=== PATIENT | male | born 1960 | race Caucasian/White ===

== ENCOUNTER 2021-08-16 17:15 | Inpatient (IN) | payer MEDICARE ==
[~2021-08-16] VITALS: Ht 167.7 cm; Wt 63.2 kg
[~2021-08-16 17:15] MED LIST: CPR500T PO
[2021-08-16] MEDS ORDERED: VANCOMYCIN INJECTION 1,250 MG in NS (IVPB) 250 ML IV ONE (17:45)
[2021-08-16] MEDS ORDERED: CEFEPIME INJECTION 1,000 MG in NS (IVPB) 50 ML IV ONE (17:45)
[2021-08-16] MEDS ORDERED: NS IV 1000 ML 2,000 ML ONE (17:45)
[2021-08-16] MEDS ORDERED: NS IV 1000 ML 1,000 ML IV SCH ×3 (17:45→18:15)
[2021-08-16 17:46] LABS: ABG OXYGEN SATURATION 91 % (94-100); ABG PCO2 21 MMHG (35-45); ABG PH 7.47 (7.37-7.43); ABG PO2 51 MMHG (79-93); ABG TCO2 15.9 MMOL/L (21.0-31.0)
[2021-08-16 17:48] LABS: INSPIRED O2 2L; PATIENT TEMP 35.9; VENTILATOR NO
[2021-08-16 17:52] VITALS: BP 114/82
--- NOTE | 2021-08-16 17:53 | ED Respiratory ---
General Chief Complaint: Respiratory Problems Stated Complaint: SLIPPED AND FELL Source: patient Exam Limitations: no limitations (AKUA STRONG) History of Present Illness Date Seen by Provider: Aug 16, 2021 Time Seen by Provider: 17:27 Initial Comments Patient to the ER by private conveyance walking in with chief complaint of profound shortness of air. He is mottled, speaking in 1-2 word answers, weak and states he has no history of lung disease or heart disease that he knows of. He does not follow with a doctor or take any medications. He does not use oxygen at baseline and had a couple falls today from standing. He says he has felt weak for the past several days short of breath. He has also had epigastric down to his umbilicus pain. He states he had a fever. He does not think he has had any sick contacts. No trauma. He fell from standing did not fall off of anything. He denies any surgeries or take any medications. He smokes about 4 c igarettes a day typically. He denies drug allergies and states he is a full code and is okay with intubation if necessary. (AKUA STRONG) Allergies and Home Medications Allergies Coded Allergies: No Known Drug Allergies (Unverified , 03/17/13) Patient Home Medication List Home Medication List Reviewed: Yes (AKUA STRONG) No Active Prescriptions or Reported Meds Review of Systems Review of Systems Constitutional: No chills, No diaphoresis EENTM: No ear discharge, No ear pain Respiratory: No cough; short of breath Cardiovascular: No chest pain, No Hx of Intervention, No palpitations Gastrointestinal: abdominal pain, constipation; No diarrhea, No nausea, No vomiting Genitourinary: No dysuria, No frequency, No hesitancy Musculoskeletal: No joint pain, No joint swelling (AKUA STRONG) All Other Systems Reviewed Negative Unless Noted: Yes (AKUA STRONG) Past Hwiqnag-Lhmlko-Ahvkce Hx Patient Social History Tobacco Use?: Yes Tobacco type used: Cigarettes Smoking Status: Current Everyday Smoker (4 cigarettes/day) Use of E-Cig and/or Vaping dev: No Substance use?: No Alcohol Use?: No (AKUA STRONG) Substance use?: Yes Substance type: Amphetamines, Methamphetamine, Marijuana Additional substance use comme: UDS + FOR METH/AMPHETAMINES, THC ON 08/16/21 (CHRISTIANO ESPINO DO) Immunizations Up To Date Tetanus Booster (TDap): Unknown (AKUA STRONG) Past Medical History Reproductive Disorders: No Sexually Transmitted Disease: No HIV/AIDS: No Adverse Reaction/Blood Tranf: No (AKUA STRONG) Physical Exam Vital Signs - First Documented 08/16/21 17:23 Temp 35.9 Pulse 113 Resp 38 B/P (MAP) 131/85 (100) Pulse Ox 77 O2 Delivery Nasal Cannula O2 Flow Rate 6.00 (CHRISTIANO ESPINO DO) Capillary Refill : (AKUA STRONG) Height: 5'7.00" Weight: 136lbs. 8.0oz. 61.650458bo; BMI Method: General Appearance: severe distress, thin, other (Disheveled, dirty, wearing pants that are about 20 sizes too large) Eyes: Bilateral Eye Normal Inspection, Bilateral Eye PERRL, Bilateral Eye EOMI HEENT: PERRL/EOMI (3 mm reactive), TMs normal; No pharynx normal (Dry oral mucosa with poor dentition) Neck: non-tender, full range of motion; No normal inspection (No JVD but gaunt, thin appearing) Respiratory: respiratory distress (Severe respiratory distress. Mottled appearance with cyanosis and inability to get an oxygen saturation until he is on 6 L by nasal cannula he reads out 77%), decreased breath sounds, accessory muscle use Cardiovascular: normal peripheral pulses, regular rate, rhythm Gastrointestinal: normal bowel sounds (Few), soft, guarding; No rebound; tenderness (Umbilicus) Extremities: non-tender, normal inspection Neurologic/Psychiatric: alert, normal mood/affect, oriented x 3 Skin: mottled, other (Covered in dirt with tar stains or fecal stains on his fingers) (AKUA STRONG) General Appearance: other (Disheveled, dirty, wearing pants that are about 20 sizes too large) (CHRISTIANO ESPINO DO) Focused Exam Sepsis Stage: Septic Shock Possible Source: Pulmonary (AKUA STRONG) Lactate Level 08/16/21 17:40: Lactic Acid Level 4.93*H (CHRISTIANO ESPINO DO) Time of Focused Exam: 18:20 Respiratory: Accessory Muscle Use (Significantly reduced work compared to earlier), Decreased Breath Sounds, Respiratory Distress (Maintaining good oxygen saturations on 80% FiO2 and BiPAP 15/7. Breathing 30 breaths/min.) Cardiovascular: Regular Rate, Rhythm, Normal Peripheral Pulses Capillary Refill: Greater Than 3 Seconds Peripheral Pulses: 3+ Radial Pulses (R), 3+ Radial Pulses (L) Skin: normal color, warm/dry (AKUA STRONG) Lactic Acid Level Laboratory Tests Test 08/16/21 17:40 Lactic Acid Level 4.93 MMOL/L (0.50-2.00) *H (CHRISTIANO ESPINO DO) Within 3hrs of presentation: Admin fluids, Admin ABX, Blood cultures prior to ABX's, Focus exam, Lactate level (AKUA STRONG) Progress/Results/Core Measures Suspected Sepsis SIRS Temperature: Pulse: Respiratory Rate: Laboratory Tests 08/16/21 17:40: White Blood Count 7.5 Blood Pressure / Mean: 08/16/21 17:40: Lactic Acid Level 4.93*H Laboratory Tests 08/16/21 17:40: Creatinine 1.68H, Platelet Count 213, Total Bilirubin 0.5 (AKUA STRONG) Results/Orders Lab Results Laboratory Tests Test 08/16/21 17:32 08/16/21 17:40 08/16/21 17:45 08/16/21 18:04 Range/Units Blood Gas Puncture Site L RADIAL Blood Gas Patient Temperature 35.9 Arterial Blood pH 7.47 H 7.37-7.43 Arterial Blood Partial Pressure CO2 21 L 35-45 MMHG Arterial Blood Partial Pressure O2 51 L 79-93 MMHG Arterial Blood HCO3 15 *L 23-27 MMOL/L Arterial Blood Total CO2 15.9 L 21.0-31.0 MMOL/L Arterial Blood Oxygen Saturation 91 L 94-100 % Arterial Blood Base Excess -8.0 L -2.5-2.5 MMOL/L Joshua Test NA Blood Gas Ventilator Setting NO Blood Gas Inspired Oxygen 2L Prothrombin Time 16.4 H 12.2-14.7 SEC INR Comment 1.3 0.8-1.4 Activated Partial Thromboplast Time 35 24-35 SEC D-Dimer 4.46 H 0.00-0.49 UG/ML Sodium Level 129 L 135-145 MMOL/L Potassium Level 4.1 3.6-5.0 MMOL/L Chloride Level 92 L 98-107 MMOL/L Carbon Dioxide Level 18 L 21-32 MMOL/L Anion Gap 19 H 5-14 MMOL/L Blood Urea Nitrogen 40 H 7-18 MG/DL Creatinine 1.68 H 0.60-1.30 MG/DL Estimat Glomerular Filtration Rate 46 BUN/Creatinine Ratio 24 Glucose Level 94 70-105 MG/DL Lactic Acid Level 4.93 *H 0.50-2.00 MMOL/L Calcium Level 9.2 8.5-10.1 MG/DL Corrected Calcium 9.4 8.5-10.1 MG/DL Total Bilirubin 0.5 0.1-1.0 MG/DL Aspartate Amino Transf (AST/SGOT) 43 H 5-34 U/L Alanine Aminotransferase (ALT/SGPT) 32 0-55 U/L Alkaline Phosphatase 87 40-136 U/L Troponin I < 0.028 <0.028 NG/ML C-Reactive Protein High Sensitivity 45.00 H 0.00-0.50 MG/DL B-Type Natriuretic Peptide 1188.7 H <100.0 PG/ML Total Protein 7.1 6.4-8.2 GM/DL Albumin 3.7 3.2-4.5 GM/DL Procalcitonin 91.25 H <0.10 NG/ML Serum Alcohol < 10 <10 MG/DL Influenza Type A (RT-PCR) Not Detected Not Detecte Influenza Type B (RT-PCR) Not Detected Not Detecte SARS-CoV-2 RNA (RT-PCR) Not Detected Not Detecte Glucometer 94 70-110 MG/DL Test 08/16/21 18:30 Range/Units Urine Color YELLOW Urine Clarity SL CLOUDY Urine pH 6.0 5-9 Urine Specific [place] 1.020 1.016-1.022 Urine Protein 2+ H NEGATIVE Urine Glucose (UA) NEGATIVE NEGATIVE Urine Ketones NEGATIVE NEGATIVE Urine Nitrite POSITIVE H NEGATIVE Urine Bilirubin NEGATIVE NEGATIVE Urine Urobilinogen 0.2 < = 1.0 MG/DL Urine Leukocyte Esterase NEGATIVE NEGATIVE Urine RBC (Auto) 3+ H NEGATIVE Urine RBC 0-2 /HPF Urine WBC 0-2 /HPF Urine Squamous Epithelial Cells RARE /HPF Urine Crystals NONE /LPF Urine Bacteria LARGE H /HPF Urine Casts PRESENT /LPF Urine Granular Casts 2-5 H /LPF Urine Mucus NEGATIVE /LPF Urine Culture Indicated CULTURE PENDING Urine Opiates Screen NEGATIVE NEGATIVE Urine Oxycodone Screen NEGATIVE NEGATIVE Urine Methadone Screen NEGATIVE NEGATIVE Urine Propoxyphene Screen NEGATIVE NEGATIVE Urine Barbiturates Screen NEGATIVE NEGATIVE Ur Tricyclic Antidepressants Screen NEGATIVE NEGATIVE Urine Phencyclidine Screen NEGATIVE NEGATIVE Urine Amphetamines Screen POSITIVE H NEGATIVE Urine Methamphetamines Screen POSITIVE H NEGATIVE Urine Benzodiazepines Screen NEGATIVE NEGATIVE Urine Cocaine Screen NEGATIVE NEGATIVE Urine Cannabinoids Screen POSITIVE H NEGATIVE (CHRISTIANO ESPINO DO) My Orders Orders - CHRISTIANO ESPINO DO Alcohol (08/16/21 17:53) Drug Screen Stat (Urine) (08/16/21 17:53) Accucheck Stat ONCE (08/16/21 18:00) Catheter(Urinary) Insert & Ass 03,15 (08/16/21 18:00) Monitor-Rhythm Ecg Trace Only (08/16/21 18:00) Ct Jayshree Chest/Noang Abd-Pelv W (08/16/21 18:04) Procalcitonin (Pct) (08/16/21 18:15) Ed Iv/Invasive Line Start (08/16/21 18:15) Ns Iv 1000 Ml (Sodium Chloride 0.9%) (08/16/21 18:15) Iohexol Injection (Omnipaque 350 Mg/Ml 1 (08/16/21 19:15) Received Contrast (Hold Metformin- Contr (08/16/21 19:15) Ns (Ivpb) (Sodium Chloride 0.9% Ivpb Bag (08/16/21 19:15) Smear For Path Review (08/16/21 19:34) Cbc With Automated Diff (08/16/21 19:34) Ed Admission (Communication) (08/16/21 19:48) (CHRISTIANO ESPINO DO) Medications Given in ED Current Medications Medications Dose Ordered Sig/Vahe Route Start Time Stop Time Status Last Admin Dose Admin Cefepime HCl 1000 mg/Sodium Chloride 50 ml @ 100 mls/hr ONCE ONCE IV 08/16/21 17:45 08/16/21 18:14 DC 08/16/21 19:18 100 MLS/HR Iohexol 100 ml ONCE ONCE IV 08/16/21 19:15 08/16/21 19:16 DC 08/16/21 19:16 61 ML Sodium Chloride 100 ml ONCE ONCE IV 08/16/21 19:15 08/16/21 19:16 DC 08/16/21 19:16 80 ML Vancomycin HCl 1250 mg/Sodium Chloride 250 ml @ 210 mls/hr ONCE ONCE IV 08/16/21 17:45 08/16/21 18:56 DC 08/16/21 19:18 210 MLS/HR (CHRISTIANO ESPINO DO) Vital Signs/I&O 08/16/21 08/16/21 17:23 17:52 Temp 35.9 Pulse 113 105 Resp 38 34 B/P (MAP) 131/85 (100) Pulse Ox 77 100 O2 Delivery Nasal Cannula O2 Flow Rate 6.00 100.00 (CHRISTIANO ESPINO DO) Vital Signs/I&O Capillary Refill : (AKUA STRONG) Progress Note : Time: 18:16 Progress Note Patient presents in profound respiratory distress. Sugars okay. He is mottled, cyanotic and has not severe increased work of breathing, tachypneic 45 to 50 breaths/min. We put him on 6 L by nasal cannula and called for respiratory therapy to bring a BiPAP. ABG labs 2 large-bore IVs were established. We gave him 2 L of normal saline which would be greater than 30 mL/kg and started treating him for sepsis. He had a good blood pressure still maintained at 1 30- 89. His oxygen saturation is now in the mid 90s on BiPAP 15/7, 100%. Dropped down to 80%. Patient is sleeping but easily aroused. Answers questions appropriately and appears to be oriented. He does have a nonproductive cough. Covid and flu swabs were obtained. Procalcitonin, CRP and D-dimer obtained. Because of his abdominal pain we did a CT with IV contrast of the abdomen. Because of the history of falls we did a CT of the head and C-spine without IV contrast. Septic work-up. ABG demonstrates respiratory alkalosis due to hypoxemia, severe. Fecal stains on his hands may indicate he has had diarrhea but the patient does not endorse this. Broad-spectrum antibiotics including cefepime and vancomycin. (AKUA STRONG) Progress Note : Progress Note 1800--ASSUMED CARE OF PT FROM DR. STRONG, ALL STUDIES PENDING AT THIS TIME. PT IS ON BIPAP AND O2 SATS 100%. PT IS SLEEPING, BUT WAKES TO VERBAL STIMULI. INCIDENTALLY, DAUGHTER WAS ADMITTED HERE A FEW HOURS AGO WITH DKA NO DETERIORATION IN PT'S CONDITION DURING ER STAY (CHRISTIANO ESPINO DO) ECG Initial ECG Impression Date: Aug 16, 2021 Initial ECG Impression Time: 17:37 Initial ECG Rate: 115 Initial ECG Rhythm: S.Tach Initial ECG Impression: Nonspecific Changes (CHRISTIANO ESPINO DO) Diagnostic Imaging Diagonstic Imaging: Xray Plain Films/CT/US/NM/MRI: chest Reviewed: Reviewed by Me (AKUA STRONG) Comments CXR--PER RADIOLOGIST REPORT AT 1858 FINDINGS: Single view of the chest demonstrates moderate infiltrate in the left midlung and base. There is a small left-sided effusion. The right lung is clear. Heart is normal. There is no pneumothorax. The osseous structures are normal. IMPRESSION: Infiltrate left midlung and base with small effusion. Follow-up recommended. CT HEAD/CERVICAL SPINE--PER RADIOLOGIST REPORT AT 1936 FINDINGS: CT HEAD: Mild generalized atrophic changes with prominence of the ventricles and sulci. There are no regional areas of decreased attenuation to suggest edema. No midline shift or mass effect. No hyperdense intracranial vascular sign. Scattered areas of decreased attenuation, likely owing to chronic small vessel ischemic disease. Bony calvarium is intact. Scattered areas of moderate mucosal thickening are noted of the paranasal sinuses. Asymmetric hyperinflation at the oral cavity CT CERVICAL SPINE: No acute fracture or traumatic subluxation. Multilevel cervical spondylosis is present. More prominent disc space narrowing at C5-C6, C6-C7 levels and, to a lesser degree, C4-C5 level. Osteophyte does result in osseous encroachment and various degrees of mild/moderate foraminal narrowing. The facet joints are intact. Odontoid intact. Visualized lung apices are unremarkable. There is calcification of the carotid bifurcation. IMPRESSION: CT HEAD: 1. Negative for acute intracranial abnormality. Some generalized age-related involutional changes. CT CERVICAL SPINE: 1. Negative for acute fracture or traumatic subluxation. Moderate multilevel cervical spondylosis. Various degrees of mild/moderate foraminal narrowing owing to degenerative endplate osteophyte. CT CHEST ANGIOGRAM/ ABDOMEN-PELVIS--PER RADIOLOGIST REPORT AT 1936 FINDINGS: CT chest: The heart is normal in size. Coronary artery disease is present. Pulmonary arteries and aorta are normal. There is a large area of consolidation in the left posterior lung base which may represent pneumonia. However, neoplasm is a secondary concern. There is some prominent subcarinal and left hilar lymph nodes. There is no pneumothorax or effusion. The right lung is clear. Osseous structures are intact. IMPRESSION: 1. Large area of consolidation left posterior lung base representing neoplasm and/or pneumonia. Follow-up is recommended. Bronchoscopy may be warranted. 2. No acute trauma within the chest. 3. Coronary artery disease. CT abdomen and pelvis: The gallbladder, solid organs, vascular structures and bowel are unremarkable. There is chronic atrophy of the spleen. Urinary bladder is decompressed with a Dow catheter. There is no bowel obstruction. There are no obvious fractures. IMPRESSION: 1. No acute trauma within the abdomen or pelvis. 2. Chronic spleen atrophy. (CHRISTIANO ESPINO DO) Departure Communication (Admissions) 1939--SPOKE WITH DR. HUERTA, HOSPITALIST, ACCEPTS PT FOR ADMIT. SHE WILL PUT IN ADMIT ORDERS. WOULD LIKE DR. BYERS CONSULTED 1941--SPOKE WITH DR. BYERS AND INFORMED OF CONSULT. (CHRISTIANO ESPINO DO) Impression Primary Impression: Septic shock Additional Impressions: Acute respiratory failure with hypoxemia Renal insufficiency Hyponatremia Pneumonia CHF (congestive heart failure) UTI (urinary tract infection) Illicit drug use Methamphetamine use Marijuana use POSSIBLE LUNG NEOPLASM VS PNEUMONIA Disposition: ADMITTED INPATIENT Condition: Improved Admissions Decision to Admit Reason: Admit from ER (General) Decision to Admit/Date: Aug 16, 2021 Time/Decision to Admit Time: 18:30 (AKUA STRONG) Departure-Patient Inst. Referrals: JUAN ASHTON (PCP) Primary Care Physician [facility] (Family) Primary Care Physician Scripts No Active Prescriptions or Reported Meds AKUA STRONG Aug 16, 2021 17:53 CHRISTIANO ESPINO DO Aug 16, 2021 18:04
[2021-08-16 17:59] LABS: ALBUMIN 3.7 GM/DL (3.2-4.5)
[2021-08-16 18:00] LABS: CHLORIDE 92 MMOL/L (98-107); POTASSIUM 4.1 MMOL/L (3.6-5.0); SODIUM 129 MMOL/L (135-145)
[2021-08-16 18:01] LABS: CALCIUM 9.2 MG/DL (8.5-10.1)
[2021-08-16 18:02] LABS: GLUCOSE 94 MG/DL (70-105); TOTAL PROTEIN 7.1 GM/DL (6.4-8.2)
[2021-08-16 18:03] LABS: CARBON DIOXIDE 18 MMOL/L (21-32)
[2021-08-16 18:04] LABS: BILIRUBIN,TOTAL 0.5 MG/DL (0.1-1.0); INR 1.3 (0.8-1.4); PROTHROMBIN TIME PATIENT 16.4 SEC (12.2-14.7)
[2021-08-16 18:05] LABS: ALKALINE PHOSPHATASE 87 U/L (40-136)
[2021-08-16 18:06] LABS: CREATININE SERUM 1.68 MG/DL (0.60-1.30); GFR ESTIMATED 46
[2021-08-16 18:07] LABS: BUN/CREATININE RATIO 24
[2021-08-16 18:08] LABS: ALANINE AMINOTRANSFERASE 32 U/L (0-55)
[2021-08-16 18:44] LABS: BILIRUBIN,URINE NEGATIVE (NEGATIVE); CLARITY,URINE SL CLOUDY; COLOR,URINE YELLOW; GLUCOSE, URINE (UA) NEGATIVE (NEGATIVE); KETONES,URINE NEGATIVE (NEGATIVE); LEUKOCYTE ESTERASE ,URINE NEGATIVE (NEGATIVE); NITRITE,URINE POSITIVE (NEGATIVE); PROTEIN,URINE 2+ (NEGATIVE)
--- NOTE | 2021-08-16 18:53 | Diagnostic Imaging Report ---
INDICATION: Recent falls, fever, and cough COMPARISON: 05/01/2015 FINDINGS: Single view of the chest demonstrates moderate infiltrate in the left midlung and base. There is a small left-sided effusion. The right lung is clear. Heart is normal. There is no pneumothorax. The osseous structures are normal. IMPRESSION: Infiltrate left midlung and base with small effusion. Follow-up recommended. Dictated by: Dictated on workstation # [id number]
[2021-08-16 18:55] LABS: BACTERIA,URINE LARGE /HPF; RBC,URINE 0-2 /HPF; SQUAMOUS EPITHELIAL CELL,UR RARE /HPF; WBC,URINE 0-2 /HPF
[2021-08-16 19:06] LABS: AMPHETAMINE SCREEN, URINE POSITIVE (NEGATIVE); BARBITURATE SCREEN URINE NEGATIVE (NEGATIVE); BENZODIAZEPINES SCREEN URINE NEGATIVE (NEGATIVE); CANNABINOID SCREEN, URINE POSITIVE (NEGATIVE); COCAINE SCREEN URINE NEGATIVE (NEGATIVE); METHADONE STAT NEGATIVE (NEGATIVE); METHAMPHETAMINE SCREEN URINE S POSITIVE (NEGATIVE); OPIATE SCREEN URINE NEGATIVE (NEGATIVE); OXYCODONE STAT NEGATIVE (NEGATIVE); PROPOXYPHENE STAT NEGATIVE (NEGATIVE); TRICYCLIC ANTIDEPRESSANTS SCRE NEGATIVE (NEGATIVE)
[2021-08-16] MEDS ORDERED: IOHEXOL 350 MG/ML 100 ML (OMNIPAQUE 350) VIAL IV ONE (19:15)
[2021-08-16] MEDS ORDERED: HOLD METFORMIN - RECEIVED CONTRAST 20 ML VIAL IV SCH (19:15)
[2021-08-16] MEDS ORDERED: NS 100 ML (IVPB) BAG IV ONE (19:15)
--- NOTE | 2021-08-16 19:28 | Diagnostic Imaging Report ---
INDICATION: HYPOXIA, ABD PAIN CTA chest, abdomen and pelvis Thin axial sections through the chest, abdomen and pelvis are obtained following intravenous contrast bolus. Multiplanar MIP images were reconstructed and reviewed. All CT scans use one or more of the following dose optimizing techniques: automated exposure control, MA and/or KvP adjustment based on patient size and exam type or iterative reconstruction. INDICATION: Fall, chest pain, hypoxia COMPARISON: None. FINDINGS: CT chest: The heart is normal in size. Coronary artery disease is present. Pulmonary arteries and aorta are normal. There is a large area of consolidation in the left posterior lung base which may represent pneumonia. However, neoplasm is a secondary concern. There is some prominent subcarinal and left hilar lymph nodes. There is no pneumothorax or effusion. The right lung is clear. Osseous structures are intact. IMPRESSION: 1. Large area of consolidation left posterior lung base representing neoplasm and/or pneumonia. Follow-up is recommended. Bronchoscopy may be warranted. 2. No acute trauma within the chest. 3. Coronary artery disease. CT abdomen and pelvis: The gallbladder, solid organs, vascular structures and bowel are unremarkable. There is chronic atrophy of the spleen. Urinary bladder is decompressed with a Dow catheter. There is no bowel obstruction. There are no obvious fractures. IMPRESSION: 1. No acute trauma within the abdomen or pelvis. 2. Chronic spleen atrophy. Dictated by: Dictated on workstation # [id number]
--- NOTE | 2021-08-16 19:29 | Diagnostic Imaging Report ---
PROCEDURE: CT head and CT cervical spine without contrast. TECHNIQUE: Multiple contiguous axial images were obtained through the brain and cervical spine without the use of intravenous contrast. Sagittal and coronal reformations through the cervical spine were then performed. Auto Exposure Controls were utilized during the CT exam to meet ALARA standards for radiation dose reduction. INDICATION: 60-year-old male, fall, hypoxia. CORRELATION STUDY: None FINDINGS: CT HEAD: Mild generalized atrophic changes with prominence of the ventricles and sulci. There are no regional areas of decreased attenuation to suggest edema. No midline shift or mass effect. No hyperdense intracranial vascular sign. Scattered areas of decreased attenuation, likely owing to chronic small vessel ischemic disease. Bony calvarium is intact. Scattered areas of moderate mucosal thickening are noted of the paranasal sinuses. Asymmetric hyperinflation at the oral cavity CT CERVICAL SPINE: No acute fracture or traumatic subluxation. Multilevel cervical spondylosis is present. More prominent disc space narrowing at C5-C6, C6-C7 levels and, to a lesser degree, C4-C5 level. Osteophyte does result in osseous encroachment and various degrees of mild/moderate foraminal narrowing. The facet joints are intact. Odontoid intact. Visualized lung apices are unremarkable. There is calcification of the carotid bifurcation. IMPRESSION: CT HEAD: 1. Negative for acute intracranial abnormality. Some generalized age-related involutional changes. CT CERVICAL SPINE: 1. Negative for acute fracture or traumatic subluxation. Moderate multilevel cervical spondylosis. Various degrees of mild/moderate foraminal narrowing owing to degenerative endplate osteophyte. Dictated by: Dictated on workstation # [id number]
[2021-08-16 20:22] VITALS: BP 140/78
[2021-08-16 20:27] LABS: ABSOLUTE RETIC # 53 10e9/uL (24-90); BASOPHILS # (AUTO) 0.1 10^3/uL (0.0-0.1); BASOPHILS % (AUTO) 1 % (0-10); EOSINOPHILS % (AUTO) 0 % (0-10); HEMATOCRIT 40 % (40-54); HEMOGLOBIN 13.8 g/dL (13.3-17.7); LYMPHOCYTES # (AUTO) 0.3 10^3/uL (1.0-4.0); LYMPHOCYTES % (AUTO) 4 % (12-44); MEAN CORPUSCULAR HEMOGLOBIN 31 pg (25-34); MEAN CORPUSCULAR HGB CONC 35 g/dL (32-36); MEAN CORPUSCULAR VOLUME 90 fL (80-99); MEAN PLATELET VOLUME 9.7 fL (9.0-12.2); MONOCYTES # (AUTO) 0.2 10^3/uL (0.0-1.0); MONOCYTES % (AUTO) 2 % (0-12); NEUTROPHILS # (AUTO) 7.7 10^3/uL (1.8-7.8); NEUTROPHILS % (AUTO) 92 % (42-75); PLATELET COUNT 182 10^3/uL (130-400); WHITE BLOOD COUNT 8.4 10^3/uL (4.3-11.0)
[2021-08-16] MEDS ORDERED: CALCIUM CARBONATE 500 MG (TUMS) TAB.CHEW PO PRN (20:45)
[2021-08-16] MEDS ORDERED: LACTULOSE SYRUP 10GM/15ML (ENULOSE) 30ML UDC PO PRN (20:45)
[2021-08-16] MEDS ORDERED: BISACODYL 10 MG SUPP (DULCOLAX) PR PRN (20:45)
[2021-08-16] MEDS ORDERED: ANTACID SUSP 30 ML UDC (MYLANTA) PO PRN (20:45)
[2021-08-16] MEDS ORDERED: ONDANSETRON 4 MG (ZOFRAN) ORAL DISSOLVE TAB PO PRN (20:45)
[2021-08-16] MEDS ORDERED: MELATONIN 3 MG TABLET PO PRN (20:45)
[2021-08-16] MEDS ORDERED: ACETAMINOPHEN 325 MG TABLET PO PRN (20:45)
[2021-08-16] MEDS ORDERED: morphine INJ 4 MG/ML 1 ML (VIAL/SYRINGE) IV PRN (20:45)
[2021-08-16] MEDS ORDERED: MILK OF MAGNESIA 400 MG/5 ML 30 ML UDC PO PRN (20:45)
[2021-08-16] MEDS ORDERED: ONDANSETRON 4 MG/2 ML (SDV) Z0FRAN IV PRN (20:45)
[2021-08-16] MEDS ORDERED: diphenhydrAMINE 25 MG TAB (BENADRYL) PO PRN (20:45)
[2021-08-16] MEDS ORDERED: polyethylene glycoL POWDER 17 GM (MIRALAX) PACK PO PRN (20:45)
[2021-08-16] MEDS ORDERED: VANCOMYCIN INJECTION 0.1 MG in NS (IVPB) 250 ML IV SCH (20:45)
--- NOTE | 2021-08-16 20:49 | Tele-ICU Consult ---
History of Present Illness History of Present Illness Date Seen by Provider: Aug 16, 2021 Time Seen by Provider: 20:44 History of Present Illness 60 yo M admitted with acute onset of SOB, CTA and CXR show large consolidating PNA LLL, SpO2 was in 70's improved to 90's on BiPAP s15/7 FiO2 100%, COVID and flu serology are negative, trop normal, Pt has no Hx of CAD or COPD, CTA does show coronary artery calcifications. + smoker, UDS + for amphetamines, methaemphetamnes and marijuana. Started on IV Vanco/Cefepime, Also Hb 16.4, LA 4.98, ABG 7.47//51 on 2 lpm nasal cannula Allergies and Home Medications Allergies Coded Allergies: No Known Drug Allergies (Unverified , 03/17/13) Home Medications No Active Prescriptions or Reported Meds Past Medical/Social/Family Hx Patient Social History Tobacco Use?: Yes Tobacco type used: Cigarettes Smoking Status: Current Everyday Smoker (4 cigarettes/day) Use of E-Cig and/or Vaping dev: No Substance use?: Yes Substance type: Amphetamines, Methamphetamine, Marijuana UDS + FOR METH/AMPHETAMINES, THC ON 08/16/21 Alcohol Use?: No Immunizations Up To Date Influenza Vaccine Up-to-Date: No; Not Current First/Initial COVID19 Vaccinat: NONE Second COVID19 Vaccination Armando: NONE Tetanus Booster (TDap): Unknown Hepatitis A: No Hepatitis B: No Current Status Advance Directives: No Communicates: Verbally Primary Language: South Korean Preferred Spoken Language: [place] Korean Review of Systems Constitutional: see HPI EENTM: see HPI Respiratory: see HPI Cardiovascular: see HPI Gastrointestinal: see HPI Genitourinary: see HPI Musculoskeletal: see HPI Skin: see HPI Psychiatric/Neurological: See HPI Focused Exam Lactate Level 08/16/21 17:40: Lactic Acid Level 4.93*H 08/16/21 20:14: Lactic Acid Level 4.00*H Height, Weight, BMI Height: 5'7.00" Weight: 136lbs. 8.0oz. 61.818940re; 21.00 BMI Method: Time of Focused Exam: 18:20 Lactic Acid Level Laboratory Tests Test 08/16/21 17:40 08/16/21 20:14 Lactic Acid Level 4.93 MMOL/L (0.50-2.00) *H 4.00 MMOL/L (0.50-2.00) *H Exam Exam Patient acknowledged, consented, and participated in this virtual visit which was conducted using real time audio/video Vital Signs Date Time Temp Pulse Resp B/P (MAP) Pulse Ox O2 Delivery O2 Flow Rate FiO2 08/16/21 17:52 105 34 100 100.00 08/16/21 17:23 35.9 113 38 131/85 (100) 77 Nasal Cannula 6.00 Height & Weight Height: 5'7.00" Weight: 136lbs. 8.0oz. 61.610810hn; 21.00 BMI Method: General Appearance: Mild Distress Respiratory: Accessory Muscle Use (Significantly reduced work compared to earlier), Decreased Breath Sounds, Respiratory Distress (Maintaining good oxygen saturations on 80% FiO2 and BiPAP 15/7. Breathing 30 breaths/min.) Cardiovascular: Regular Rate, Rhythm, Normal Peripheral Pulses, Tachycardia Capillary Refill: Greater Than 3 Seconds Peripheral Pulses: 3+ Radial Pulses (R), 3+ Radial Pulses (L) Gastrointestinal: normal bowel sounds (Few), non tender, soft, guarding; No rebound; tenderness (Umbilicus) Results Lab Laboratory Tests 08/16/21 17:40 Assessment/Plan Assessment/Plan Large LLL PNA, on BiPAP 15/7 FiO2 80%, spont RR is mid 20's Will continue to observe for possible intubation but right now ok continue abx, repeat LA elevated Hb may mean dehydration but may also be from a reactive polycythemia for chronic hypoxia Critical Care: Critically Ill Patient Time spent with patient (mins): 30 JOSEF ROBLES MD Aug 16, 2021 20:49
[2021-08-16] MEDS ORDERED: ENOXAPARIN 40 MG/0.4 ML (LOVENOX) SYR SC SCH (21:00)
[2021-08-16 21:09] LABS: ATYPICAL LYMPHOCYTES 3 %; BAND NEUTROPHILS 11 %; LYMPHOCYTES % (MANUAL) 2 %; METAMYELOCYTES % 69 %; MONOCYTES % (MANUAL) 1 %; MYELOCYTES % 7 %; NEUTROPHILS % (MANUAL) 7 %; TOXIC GRANULATION/VACUOLAZATIO 3+
[2021-08-16 21:10] LABS: BURR CELLS MODERATE
[2021-08-16 21:52] VITALS: BP 135/68
[2021-08-16 22:03] LABS: ABG BASE EXCESS -7.9 MMOL/L (-2.5-2.5); ABG OXYGEN SATURATION 99 % (94-100); ABG PCO2 25 MMHG (35-45); ABG PH 7.41 (7.37-7.43); ABG PO2 190 MMHG (79-93); ABG TCO2 16.8 MMOL/L (21.0-31.0)
[2021-08-16 22:04] LABS: INSPIRED O2 60%; PATIENT TEMP 36; VENTILATOR NO
[2021-08-16] MEDS: LACTATED RINGERS 1,000 ML IV SCH (22:34)
[2021-08-16] MEDS: DOCUSATE SODIUM 100 MG (COLACE) CAP PO SCH (22:34)
[2021-08-16] MEDS: SENNOSIDES 8.6 MG (SENOKOT) TAB PO SCH (22:34)
[2021-08-16] MEDS: ENOXAPARIN 100 MG/1 ML (LOVENOX) SYR SC SCH (22:35)
[2021-08-16 22:36] VITALS: BP 133/82
[2021-08-16] MEDS ORDERED: diphenhydrAMINE 50 MG/ML INJ (BENADRYL) IVP PRN (23:00)
[2021-08-16] MEDS ORDERED: RT-ALBUTEROL/IPRATROPIUM 3 ML (DUONEB) VIAL INH PRN (23:15)
[2021-08-17] MEDS: LACTATED RINGERS 1,000 ML IV SCH ×6 (01:23→21:13)
[2021-08-17 02:38] LABS: BASOPHILS # (AUTO) 0.1 10^3/uL (0.0-0.1); BASOPHILS % (AUTO) 1 % (0-10); EOSINOPHILS % (AUTO) 0 % (0-10); HEMATOCRIT 38 % (40-54); HEMOGLOBIN 13.4 g/dL (13.3-17.7); LYMPHOCYTES # (AUTO) 0.3 10^3/uL (1.0-4.0); LYMPHOCYTES % (AUTO) 3 % (12-44); MEAN CORPUSCULAR HEMOGLOBIN 31 pg (25-34); MEAN CORPUSCULAR HGB CONC 36 g/dL (32-36); MEAN CORPUSCULAR VOLUME 88 fL (80-99); MEAN PLATELET VOLUME 9.6 fL (9.0-12.2); MONOCYTES # (AUTO) 0.1 10^3/uL (0.0-1.0); MONOCYTES % (AUTO) 1 % (0-12); NEUTROPHILS % (AUTO) 95 % (42-75); PLATELET COUNT 152 10^3/uL (130-400); WHITE BLOOD COUNT 9.5 10^3/uL (4.3-11.0)
[2021-08-17 02:48] LABS: ALBUMIN 2.8 GM/DL (3.2-4.5); POTASSIUM 3.5 MMOL/L (3.6-5.0)
[2021-08-17 02:49] LABS: CALCIUM 7.7 MG/DL (8.5-10.1)
[2021-08-17 02:51] LABS: TOTAL PROTEIN 5.4 GM/DL (6.4-8.2)
[2021-08-17 02:53] LABS: BILIRUBIN,TOTAL 0.5 MG/DL (0.1-1.0)
[2021-08-17 02:54] LABS: CREATININE SERUM 1.11 MG/DL (0.60-1.30); PHOSPHORUS 3.8 MG/DL (2.3-4.7)
[2021-08-17 02:57] LABS: MAGNESIUM 1.5 MG/DL (1.6-2.4)
[2021-08-17] MEDS: RT-ALBUTEROL/IPRATROPIUM 3 ML (DUONEB) VIAL INH SCH ×5 (02:58→21:40)
[2021-08-17 03:00] VITALS: BP 131/82
[2021-08-17] MEDS: CEFEPIME INJECTION 1,000 MG in NS (IVPB) 50 ML IV SCH ×3 (04:25→21:05)
[2021-08-17] MEDS: POTASSIUM CL 10MEQ/50ML IVPB 50 ML IV SCH (05:19)
[2021-08-17] MEDS: MAGNESIUM 1 GM/100 ML IVPB 100 ML IV SCH (05:19)
[2021-08-17] MEDS: KCL 20 MEQ TAB (K-DUR) PO SCH (05:20)
[2021-08-17] MEDS: NOREPINEPHRINE 8 MG/250 ML 250 ML IV SCH ×2 (05:46→14:15)
--- NOTE | 2021-08-17 07:46 | Diagnostic Imaging Report ---
EXAMINATION: Chest 1 view HISTORY: Dyspnea COMPARISON: 08/16/2021 FINDINGS: Heart size and pulmonary vasculature are normal. Persistent opacity seen within the left mid and lower lung. No pleural effusion or pneumothorax. Degenerative changes of the thoracic spine. Osseous structures are otherwise intact. IMPRESSION: 1. Persistent left lower lung opacities compared to 08/16/2021. Dictated by: Dictated on workstation # [id number]
[2021-08-17] MEDS: VANCOMYCIN 1 GM/NS 250 ML IVPB IV SCH ×4 (08:07→21:05)
[2021-08-17] MEDS: ENOXAPARIN 100 MG/1 ML (LOVENOX) SYR SC SCH (08:09)
--- NOTE | 2021-08-17 08:19 | Consultation-Cardiology ---
HPI-Cardiology Cardiology Consultation Date of Consultation 08/17/21 Date of Admission Time Seen by Provider: 08:14 Indication: Acute respiratory failure HPI 60 years old gentleman who came into the emergency room with acute respiratory failure, currently on BiPAP. He is unable to provide full history, most of the history was obtained by reviewing his records. Complaining of generalized fatigue, shortness of breath for several days. Had epigastric and abdominal pain. No chest pain, no palpitation. Home Medications & Allergies Allergies: Coded Allergies: No Known Drug Allergies (Unverified , 03/17/13) Home Medication List Reviewed: Yes OQX-[id number]-Yfdlph Hx Patient Social History Smoking Status: Current Everyday Smoker (4 cigarettes/day) Have you traveled recently?: No Alcohol Use?: No Substance type: Amphetamines, Methamphetamine, Marijuana Immunizations Up To Date Tetanus Booster (TDap): Unknown Past Medical History Discussed below Family Medical History Family Medical Hx Noncontributory Review of Systems-General Review of Systems Constitutional: see HPI, malaise, weakness, other (Unable to provide full review of system) EENTM: see HPI Respiratory: see HPI, short of breath Cardiovascular: see HPI; No chest pain, No edema, No Hx of Intervention, No palpitations, No syncope, No vascular heart diseas, No other Gastrointestinal: no symptoms reported, see HPI, abdominal pain Genitourinary: see HPI Musculoskeletal: see HPI Skin: see HPI Psychiatric/Neurological: See HPI All Other Systems Reviewed Negative Unless Noted: Yes Reviewed Test Results Reviewed Test Results Lab Laboratory Tests Test 08/16/21 17:32 08/16/21 17:40 08/16/21 17:45 08/16/21 18:04 Range/Units Blood Gas Puncture Site L RADIAL Blood Gas Patient Temperature 35.9 Arterial Blood pH 7.47 H 7.37-7.43 Arterial Blood Partial Pressure CO2 21 L 35-45 MMHG Arterial Blood Partial Pressure O2 51 L 79-93 MMHG Arterial Blood HCO3 15 *L 23-27 MMOL/L Arterial Blood Total CO2 15.9 L 21.0-31.0 MMOL/L Arterial Blood Oxygen Saturation 91 L 94-100 % Arterial Blood Base Excess -8.0 L -2.5-2.5 MMOL/L Joshua Test NA Blood Gas Ventilator Setting NO Blood Gas Inspired Oxygen 2L Prothrombin Time 16.4 H 12.2-14.7 SEC INR Comment 1.3 0.8-1.4 Activated Partial Thromboplast Time 35 24-35 SEC D-Dimer 4.46 H 0.00-0.49 UG/ML Sodium Level 129 L 135-145 MMOL/L Potassium Level 4.1 3.6-5.0 MMOL/L Chloride Level 92 L 98-107 MMOL/L Carbon Dioxide Level 18 L 21-32 MMOL/L Anion Gap 19 H 5-14 MMOL/L Blood Urea Nitrogen 40 H 7-18 MG/DL Creatinine 1.68 H 0.60-1.30 MG/DL Estimat Glomerular Filtration Rate 46 BUN/Creatinine Ratio 24 Glucose Level 94 70-105 MG/DL Lactic Acid Level 4.93 *H 0.50-2.00 MMOL/L Calcium Level 9.2 8.5-10.1 MG/DL Corrected Calcium 9.4 8.5-10.1 MG/DL Total Bilirubin 0.5 0.1-1.0 MG/DL Aspartate Amino Transf (AST/SGOT) 43 H 5-34 U/L Alanine Aminotransferase (ALT/SGPT) 32 0-55 U/L Alkaline Phosphatase 87 40-136 U/L Troponin I < 0.028 <0.028 NG/ML C-Reactive Protein High Sensitivity 45.00 H 0.00-0.50 MG/DL B-Type Natriuretic Peptide 1188.7 H <100.0 PG/ML Total Protein 7.1 6.4-8.2 GM/DL Albumin 3.7 3.2-4.5 GM/DL Procalcitonin 91.25 H <0.10 NG/ML Serum Alcohol < 10 <10 MG/DL Influenza Type A (RT-PCR) Not Detected Not Detecte Influenza Type B (RT-PCR) Not Detected Not Detecte SARS-CoV-2 RNA (RT-PCR) Not Detected Not Detecte Glucometer 94 70-110 MG/DL Test 08/16/21 18:30 08/16/21 20:14 08/16/21 20:58 08/16/21 21:48 Range/Units Urine Color YELLOW Urine Clarity SL CLOUDY Urine pH 6.0 5-9 Urine Specific [place] 1.020 1.016-1.022 Urine Protein 2+ H NEGATIVE Urine Glucose (UA) NEGATIVE NEGATIVE Urine Ketones NEGATIVE NEGATIVE Urine Nitrite POSITIVE H NEGATIVE Urine Bilirubin NEGATIVE NEGATIVE Urine Urobilinogen 0.2 < = 1.0 MG/DL Urine Leukocyte Esterase NEGATIVE NEGATIVE Urine RBC (Auto) 3+ H NEGATIVE Urine RBC 0-2 /HPF Urine WBC 0-2 /HPF Urine Squamous Epithelial Cells RARE /HPF Urine Crystals NONE /LPF Urine Bacteria LARGE H /HPF Urine Casts PRESENT /LPF Urine Granular Casts 2-5 H /LPF Urine Mucus NEGATIVE /LPF Urine Culture Indicated CULTURE PENDING Urine Opiates Screen NEGATIVE NEGATIVE Urine Oxycodone Screen NEGATIVE NEGATIVE Urine Methadone Screen NEGATIVE NEGATIVE Urine Propoxyphene Screen NEGATIVE NEGATIVE Urine Barbiturates Screen NEGATIVE NEGATIVE Ur Tricyclic Antidepressants Screen NEGATIVE NEGATIVE Urine Phencyclidine Screen NEGATIVE NEGATIVE Urine Amphetamines Screen POSITIVE H NEGATIVE Urine Methamphetamines Screen POSITIVE H NEGATIVE Urine Benzodiazepines Screen NEGATIVE NEGATIVE Urine Cocaine Screen NEGATIVE NEGATIVE Urine Cannabinoids Screen POSITIVE H NEGATIVE White Blood Count 8.4 4.3-11.0 10^3/uL Red Blood Count 4.39 4.30-5.52 10^6/uL Hemoglobin 13.8 13.3-17.7 g/dL Hematocrit 40 40-54 % Mean Corpuscular Volume 90 80-99 fL Mean Corpuscular Hemoglobin 31 25-34 pg Mean Corpuscular Hemoglobin Concent 35 32-36 g/dL Red Cell Distribution Width 13.4 10.0-14.5 % Platelet Count 182 130-400 10^3/uL Mean Platelet Volume 9.7 9.0-12.2 fL Immature Granulocyte % (Auto) 2 % Neutrophils (%) (Auto) 92 H 42-75 % Lymphocytes (%) (Auto) 4 L 12-44 % Monocytes (%) (Auto) 2 0-12 % Eosinophils (%) (Auto) 0 0-10 % Basophils (%) (Auto) 1 0-10 % Neutrophils # (Auto) 7.7 1.8-7.8 10^3/uL Lymphocytes # (Auto) 0.3 L 1.0-4.0 10^3/uL Monocytes # (Auto) 0.2 0.0-1.0 10^3/uL Eosinophils # (Auto) 0.0 0.0-0.3 10^3/uL Basophils # (Auto) 0.1 0.0-0.1 10^3/uL Immature Granulocyte # (Auto) 0.1 0.0-0.1 10^3/uL Neutrophils % (Manual) 7 % Lymphocytes % (Manual) 2 % Monocytes % (Manual) 1 % Metamyelocytes % 69 % Myelocytes % 7 % Band Neutrophils 11 % Atypical Lymphocytes 3 % Toxic Granulation 3+ Percent Immature Platelet Fraction 4.6 0.0-7.6 % Екатерина Cells MODERATE Absolute Reticulocyte Count 53 24-90 10e9/uL Percent Reticulocyte Count 1.20 0.50-2.40 % Lactic Acid Level 4.00 *H 0.50-2.00 MMOL/L Glucometer 79 70-110 MG/DL Blood Gas Puncture Site NA Blood Gas Patient Temperature 36 Arterial Blood pH 7.41 7.37-7.43 Arterial Blood Partial Pressure CO2 25 L 35-45 MMHG Arterial Blood Partial Pressure O2 190 H 79-93 MMHG Arterial Blood HCO3 16 *L 23-27 MMOL/L Arterial Blood Total CO2 16.8 L 21.0-31.0 MMOL/L Arterial Blood Oxygen Saturation 99 94-100 % Arterial Blood Base Excess -7.9 L -2.5-2.5 MMOL/L Joshua Test NA Blood Gas Ventilator Setting NO Blood Gas Inspired Oxygen 60% Test 08/16/21 22:16 08/17/21 00:20 08/17/21 02:30 Range/Units Lactic Acid Level 3.31 *H 3.03 *H 1.95 0.50-2.00 MMOL/L White Blood Count 9.5 4.3-11.0 10^3/uL Red Blood Count 4.28 L 4.30-5.52 10^6/uL Hemoglobin 13.4 13.3-17.7 g/dL Hematocrit 38 L 40-54 % Mean Corpuscular Volume 88 80-99 fL Mean Corpuscular Hemoglobin 31 25-34 pg Mean Corpuscular Hemoglobin Concent 36 32-36 g/dL Red Cell Distribution Width 13.3 10.0-14.5 % Platelet Count 152 130-400 10^3/uL Mean Platelet Volume 9.6 9.0-12.2 fL Immature Granulocyte % (Auto) 1 % Neutrophils (%) (Auto) 95 H 42-75 % Lymphocytes (%) (Auto) 3 L 12-44 % Monocytes (%) (Auto) 1 0-12 % Eosinophils (%) (Auto) 0 0-10 % Basophils (%) (Auto) 1 0-10 % Neutrophils # (Auto) 9.0 H 1.8-7.8 10^3/uL Lymphocytes # (Auto) 0.3 L 1.0-4.0 10^3/uL Monocytes # (Auto) 0.1 0.0-1.0 10^3/uL Eosinophils # (Auto) 0.0 0.0-0.3 10^3/uL Basophils # (Auto) 0.1 0.0-0.1 10^3/uL Immature Granulocyte # (Auto) 0.1 0.0-0.1 10^3/uL Sodium Level 132 L 135-145 MMOL/L Potassium Level 3.5 L 3.6-5.0 MMOL/L Chloride Level 102 98-107 MMOL/L Carbon Dioxide Level 14 L 21-32 MMOL/L Anion Gap 16 H 5-14 MMOL/L Blood Urea Nitrogen 33 H 7-18 MG/DL Creatinine 1.11 0.60-1.30 MG/DL Estimat Glomerular Filtration Rate 76 BUN/Creatinine Ratio 30 Glucose Level 77 70-105 MG/DL Calcium Level 7.7 L 8.5-10.1 MG/DL Corrected Calcium 8.7 8.5-10.1 MG/DL Phosphorus Level 3.8 2.3-4.7 MG/DL Magnesium Level 1.5 L 1.6-2.4 MG/DL Total Bilirubin 0.5 0.1-1.0 MG/DL Aspartate Amino Transf (AST/SGOT) 32 5-34 U/L Alanine Aminotransferase (ALT/SGPT) 25 0-55 U/L Alkaline Phosphatase 70 40-136 U/L Total Protein 5.4 L 6.4-8.2 GM/DL Albumin 2.8 L 3.2-4.5 GM/DL Physical Exam Physical Exam Vital Signs Vital Signs - First Documented 08/16/21 08/16/21 17:23 22:36 Temp 35.9 Pulse 113 Resp 38 B/P (MAP) 131/85 (100) Pulse Ox 77 O2 Delivery Nasal Cannula O2 Flow Rate 6.00 FiO2 60 Capillary Refill : Greater Than 3 Seconds Height, Weight, BMI Height: 5'7.00" Weight: 136lbs. 8.0oz. 61.743374lv; 21.76 BMI Method: General Appearance: Moderate Distress Eyes: Bilateral Eye Normal Inspection, Bilateral Eye PERRL, Bilateral Eye EOMI HEENT: PERRL/EOMI, TMs Normal, Normal ENT Inspection, Pharynx Normal, Moist Mucous Membranes Neck: Full Range of Motion, Normal Inspection, Non Tender, Supple, Carotid Bruit Respiratory: Accessory Muscle Use (Significantly reduced work compared to earlier), Decreased Breath Sounds, Respiratory Distress (Maintaining good oxygen saturations on 80% FiO2 and BiPAP 15/7. Breathing 30 breaths/min.) Cardiovascular: Regular Rate, Rhythm, Normal Peripheral Pulses, Tachycardia Gastrointestinal: Normal Bowel Sounds, No Organomegaly, No Pulsatile Mass, Non Tender, Soft Back: Normal Inspection, No CVA Tenderness, No Vertebral Tenderness Extremity: Normal Capillary Refill, Normal Inspection, Normal Range of Motion, Non Tender, No Calf Tenderness, No Pedal Edema Neurologic/Psychiatric: Alert, Oriented x3, No Motor/Sensory Deficits, Normal Mood/Affect Skin: Normal Color, Warm/Dry Lymphatic: No Adenopathy A/P-Cardiology Admission Diagnosis Acute respiratory failure Left lower lobe pneumonia Sepsis Methamphetamine use Assessment/Plan Acute respiratory failure, left lower lobe pneumonia, maintained on BiPAP. Managed by medical team. Receiving antibiotics. Sepsis, metabolic acidosis, lactic acidosis, receiving IV fluid and antibiotics. Epigastric and abdominal pain, currently feeling better. Continue to monitor Echocardiogram done on August 16, 2021 showing normal left ventricular size and ejection fraction 55 to 60%, normal PA pressure. No significant valvular abnormality. Overall the quality of the study was suboptimal Methamphetamine use and cannabinoids use BISHOP BYERS MD Aug 17, 2021 08:19
--- NOTE | 2021-08-17 08:42 | Physical Therapy Progress Note ---
Therapy Progress Note Patient on Hold per RN. Will attempt later today or in a.m. CASH ANDRES PT Aug 17, 2021 08:42
[2021-08-17] MEDS: DOCUSATE SODIUM 100 MG (COLACE) CAP PO SCH ×2 (09:08→21:08)
[2021-08-17] MEDS: SENNOSIDES 8.6 MG (SENOKOT) TAB PO SCH ×2 (09:08→21:09)
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
--- NOTE | 2021-08-17 13:03 | Physical Therapy Evaluation ---
PT Evaluation-General Medical Diagnosis Admission Date Aug 16, 2021 at 19:48 Medical Diagnosis: acute resp failue, sepsis Onset Date: Aug 16, 2021 Therapy Diagnosis Therapy Diagnosis: impaired mobility Height/Weight Height (Feet): 5 Height (Inches): 7.00 Weight (Pounds): 136 Weight (Ounces): 8.0 Precautions Precautions/Isolations: Fall Prevention, Standard Precautions Weight Bear Status Right Lower Extremity: Right Weight Bearing/Tolerated Left Lower Extremity: Left Weight Bearing/Tolerated Referral Physician: Meri Reason for Referral: Evaluation/Treatment Medical History Pertinent Medical History: Renal Insufficiency, Smoking Additional Medical History polysubstance use Current History walked into ER with severe SOA Reviewed History: Yes Social History Current Living Status: Friend Prior Prior Level of Function SCALE: Activities may be completed with or without assistive devices. 2-Fyrfwzwiqm-ihfvcys completes the activity by him/herself with no assistance from a helper. 5-Set-up or Clean-up Assistance-helper sets up or cleans up; patient completes activity. [place] assists only prior to or following the activity. 4-Supervision or Touching Assistance-helper provides verbal cues and/or touching/steadying and/or contact guard assistance as patient completes activity. Assistance may be provided throughout the activity or intermittently. 3-Partial/Moderate Assistance-helper does LESS THAN HALF the effort. [place] lifts, holds or supports trunk or limbs, but provides less than half the effort. 2-Substantial/Maximal Assistance-helper does MORE THAN HALF the effort. [place] lifts or holds trunk or limbs and provides more than half the effort. 5-Wbadwmqtp-gggbyq does ALL the effort. Patient does none of the effort to complete the activity. Or, the assistance of 2 or more helpers is required for the patient to complete the activity. If activity was not attempted, code reason: 7-Patient Refused. 9-Not Applicable-not attempted and the patient did not perform the activity before the current illness, exacerbation or injury. 10-Not Attempted due to Environmental Limitations-(lack of equipment, weather restraints, etc.). 88-Not Attempted due to Medical Conditions or Safety Concerns. Bed Mobility: 6 Transfers (B,C,W/C): 6 Gait: 6 Stairs: 6 Indoor Mobility (Ambulation): Independent Stairs: Independent Prior Devices Use: None PT Evaluation-Current Subjective Patient very lethargic but followed direction. Would not open his eyes. Objective Patient Orientation: Listless Attachments: Oxygen, IV ROM/Strength ROM Lower Extremities bilateral LE WFL Strength Lower Extremities 3/5 grossly bilateral LE with all movement in bed Integumentary/Posture Bowel Incontinence: No Posture WFL Neuromuscular (Tone, Coordination, Reflexes) diminished coordination due to lethargy Sensory Vision: Unable to Assess Hearing: Functional Hand Dominance: Right Transfers Roll Left to Right (QC): 4 Sit to Lying (QC): 4 Lying to Sitting/Side of Bed(Q: 4 Sit to Stand (QC): 88 Chair/Nuz-dh-Defdj Xfer(QC): 88 Gait Mode of Locomotion: Walk Anticipated Mode of Locomotion: Walk Balance Sitting Static: Fair Sitting Dynamic: Fair Assessment/Needs Patient very limited with mobility due to lethargy. Does follow direction, however, will not open his eyes. Increase activity as tolerated by patient. Rehab Potential: Fair PT Mcfp Goals Mcfp Goals PT Mcfp Goals Time Frame: Aug 28, 2021 Roll Left & Right (QC): 6 Sit to Lying (QC): 6 Lying-Sitting on Side/Bed(QC): 6 Sit to Stand (QC): 6 Chair/Erv-kr-Qewvc Xfer(QC): 6 Toilet Transfer (QC): 6 Walk 10 feet (QC): 6 Walk 50ft with 2 Turns (QC): 6 Walk 150 ft (QC): 6 PT Plan Problem List Problem List: Activity Tolerance, Functional Strength, Safety, Balance, Gait, Transfer, Bed Mobility Treatment/Plan Treatment Plan: Continue Plan of Care Treatment Plan: Bed Mobility, Education, Functional Activity Cecy, Functional Strength, Gait, Safety, Therapeutic Exercise, Transfers Treatment Duration: Aug 28, 2021 Frequency: 6 times per week Estimated Hrs Per Day: .25 hour per day Time/GCodes Time In: 1220 Time Out: 1230 Total Billed Treatment Time: 10 Total Billed Treatment 1 visit EVLowC 10 min CASH ANDRES PT Aug 17, 2021 13:03
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
[2021-08-17] MEDS ORDERED: NICOTINE 7 MG (NICODERM) PATCH TD NR (17:15)
[2021-08-17 17:28] LABS: ABG BASE EXCESS -2.9 MMOL/L (-2.5-2.5); ABG OXYGEN SATURATION 96 % (94-100); ABG PCO2 28 MMHG (35-45); ABG PH 7.47 (7.37-7.43); ABG PO2 76 MMHG (79-93); ALLENS TEST POSITIVE
[2021-08-17 17:29] LABS: INSPIRED O2 3 L; PATIENT TEMP 37.6; VENTILATOR NO
[2021-08-17] MEDS: ENOXAPARIN 60 MG/0.6 ML (LOVENOX) SYR SC SCH (21:06)
[2021-08-18] MEDS: LACTATED RINGERS 1,000 ML IV SCH ×3 (01:55→17:12)
[2021-08-18] MEDS: RT-ALBUTEROL/IPRATROPIUM 3 ML (DUONEB) VIAL INH SCH ×6 (02:40→22:42)
[2021-08-18] MEDS: CEFEPIME INJECTION 1,000 MG in NS (IVPB) 50 ML IV SCH (03:41)
[2021-08-18 04:52] LABS: ABG BASE EXCESS -2.3 MMOL/L (-2.5-2.5); ABG OXYGEN SATURATION 95 % (94-100); ABG PCO2 32 MMHG (35-45); ABG PH 7.44 (7.37-7.43); ABG PO2 72 MMHG (79-93); ABG TCO2 22.1 MMOL/L (21.0-31.0); ALLENS TEST POSITIVE
[2021-08-18 04:53] LABS: INSPIRED O2 2L NC; PATIENT TEMP 37.8; VENTILATOR NO
[2021-08-18 05:57] LABS: BASOPHILS % (AUTO) 1 % (0-10)
[2021-08-18 05:59] LABS: BASOPHILS # (AUTO) 0.1 10^3/uL (0.0-0.1); EOSINOPHILS % (AUTO) 0 % (0-10); HEMATOCRIT 31 % (40-54); HEMOGLOBIN 11.3 g/dL (13.3-17.7); LYMPHOCYTES # (AUTO) 0.4 10^3/uL (1.0-4.0); LYMPHOCYTES % (AUTO) 3 % (12-44); MEAN CORPUSCULAR HEMOGLOBIN 32 pg (25-34); MEAN CORPUSCULAR HGB CONC 36 g/dL (32-36); MEAN CORPUSCULAR VOLUME 88 fL (80-99); MONOCYTES # (AUTO) 0.4 10^3/uL (0.0-1.0); MONOCYTES % (AUTO) 3 % (0-12); NEUTROPHILS % (AUTO) 92 % (42-75); PLATELET COUNT 104 10^3/uL (130-400); WHITE BLOOD COUNT 13.1 10^3/uL (4.3-11.0)
[2021-08-18 06:01] LABS: ALBUMIN 2.6 GM/DL (3.2-4.5); POTASSIUM 2.6 MMOL/L (3.6-5.0)
[2021-08-18 06:02] LABS: CALCIUM 8.2 MG/DL (8.5-10.1)
[2021-08-18 06:03] LABS: TOTAL PROTEIN 5.6 GM/DL (6.4-8.2)
[2021-08-18 06:05] LABS: BILIRUBIN,TOTAL 0.5 MG/DL (0.1-1.0)
[2021-08-18 06:07] LABS: CREATININE SERUM 0.78 MG/DL (0.60-1.30); PHOSPHORUS 1.8 MG/DL (2.3-4.7)
[2021-08-18 06:09] LABS: MAGNESIUM 1.9 MG/DL (1.6-2.4)
[2021-08-18] MEDS: MAGNESIUM 1 GM/100 ML IVPB 100 ML IV SCH (06:15)
[2021-08-18] MEDS: POTASSIUM CL 10MEQ/50ML IVPB 50 ML IV SCH (06:15)
[2021-08-18] MEDS: KCL 20 MEQ TAB (K-DUR) PO SCH (06:16)
[2021-08-18] MEDS ORDERED: TROUGH ORDER-PHARMACY XX ONE (07:00)
[2021-08-18] MEDS ORDERED: POT PHOS/NA PHOS (K-PHOS NEUTRAL) PO ONE (07:45)
[2021-08-18] MEDS ORDERED: KCL 20 MEQ TAB (K-DUR) PO NR ×5 (08:00→20:30)
--- NOTE | 2021-08-18 08:03 | Diagnostic Imaging Report ---
INDICATION: Dyspnea. Time of Exam: 3:55 AM Correlation is made with prior chest from one day earlier. Heart size normal. There continues to be some increased density left mid and lower lung field. There appears to be some compressible consolidation in the left base obscuring the left hemidiaphragm. Right lung remains fairly clear. There is no pneumothorax. IMPRESSION: Stable left-sided infiltrates when compared to examination one day earlier. Dictated by: Dictated on workstation # [id number]
[2021-08-18] MEDS: NICOTINE PATCH REMOVAL TP SCH (08:27)
[2021-08-18] MEDS: ENOXAPARIN 60 MG/0.6 ML (LOVENOX) SYR SC SCH (08:27)
[2021-08-18] MEDS: cefTRIAXone 1 GM PRE-MIX 50 ML IV SCH (08:28)
[2021-08-18] MEDS: DOCUSATE SODIUM 100 MG (COLACE) CAP PO SCH ×2 (08:29→19:28)
[2021-08-18] MEDS: SENNOSIDES 8.6 MG (SENOKOT) TAB PO SCH ×2 (08:29→19:28)
[2021-08-18] MEDS: NICOTINE 7 MG (NICODERM) PATCH TD SCH (08:30)
--- NOTE | 2021-08-18 08:31 | Tele-ICU Progress Note ---
Subjective Date Seen by a Provider: Aug 17, 2021 Time Seen by a Provider: 09:17 Subjective/Events-last exam Tele-ICU Physician , Progress Note ) Available chart/ vitals / labs / Images reviewed Video assessment done using teleICU camera, rest of exam as per RN Discussed with RN , EXAM PER RN Events overnight : Afebrile FiO2 - 2l nc I/O = + 300 Drips: Pressors: , hemodynamically stable Consultants: Hospital course: 08/16 Pt is a 60 y/o male, admitted with septic shock PNA, KHADIJAH, hyponatremia, C HF, UTI, poss neoplasm, USD (+) Meth & amphetamines. 08/17- BIPAP 15/7 30% A/P Acute respiratory failure - BIPAP 15/7 30% --> NC PNA LLL - cont abx for now - close f/up with cxr , might need re-eval UTI - GNR - cont abx ECHO 08/16- EF 55% UDS + for amphetamines, methaemphetamnes and marijuana elevated Hb on admisssionn - may mean dehydration but may also be from a reactive polycythemia for chronic hypoxia Lines : (Central Line Necessity Reviewed) Dow: OG: Nutrition: Analgesia: Anxiety/ delirium VTE Prophylaxis: 60 bid Stress Ulcer Prophylaxis: Plans in collaboration with bedside consultants and IM MDs. Discussed with RN to reach out if any questions or concerns A total of 22 minutes of critical care time was devoted to this patient today, required to treat and/or prevent further deterioration of critical care condition ( as above) . Sepsis Event Evaluation Height, Weight, BMI Height: 5'7.00" Weight: 136lbs. 8.0oz. 61.435468sp; 21.76 BMI Method: Focused Exam Lactate Level 08/16/21 22:16: Lactic Acid Level 3.31*H 08/17/21 00:20: Lactic Acid Level 3.03*H 08/17/21 02:30: Lactic Acid Level 1.95 Time of Focused Exam: 18:20 Exam Exam Patient acknowledged, consented, and participated in this virtual visit which was conducted using real time audio/video Vital Signs Date Time Temp Pulse Resp B/P (MAP) Pulse Ox O2 Delivery O2 Flow Rate FiO2 08/18/21 08:00 36.2 08/18/21 07:00 88 08/18/21 06:56 96 Nasal Cannula 1.00 08/18/21 06:30 88 21 130/69 97 Nasal Cannula 2.00 08/18/21 06:14 37.6 08/18/21 06:00 75 20 182/83 98 Nasal Cannula 2.00 08/18/21 05:44 38.1 08/18/21 05:00 88 13 133/91 98 Nasal Cannula 2.00 08/18/21 04:00 98 Nasal Cannula 2.00 08/18/21 04:00 85 20 149/98 97 Nasal Cannula 2.00 08/18/21 04:00 37.8 08/18/21 03:00 81 23 150/95 97 Nasal Cannula 2.00 08/18/21 02:40 97 Nasal Cannula 1.00 08/18/21 02:00 88 24 119/84 98 Nasal Cannula 2.00 08/18/21 01:00 97 08/18/21 01:00 97 23 139/89 97 Nasal Cannula 2.00 08/18/21 00:00 89 25 156/93 98 Nasal Cannula 2.00 08/18/21 00:00 37.2 Nasal Cannula 2.00 08/17/21 23:59 98 Nasal Cannula 2.00 08/17/21 23:00 96 20 143/82 98 Nasal Cannula 2.00 08/17/21 22:00 89 19 138/87 98 Nasal Cannula 2.00 08/17/21 21:40 98 Nasal Cannula 2.00 08/17/21 21:00 87 12 168/80 98 Nasal Cannula 2.00 08/17/21 21:00 36.8 Nasal Cannula 2.00 08/17/21 20:00 98 Nasal Cannula 2.00 08/17/21 20:00 37.7 08/17/21 20:00 87 17 159/93 98 Nasal Cannula 2.00 08/17/21 19:00 89 08/17/21 19:00 89 21 140/90 98 Nasal Cannula 2.00 08/17/21 18:52 97 Nasal Cannula 2.00 08/17/21 18:00 97 21 149/97 99 Nasal Cannula 2.00 08/17/21 17:00 93 19 125/77 98 Nasal Cannula 2.00 08/17/21 16:02 37.4 08/17/21 16:00 92 27 149/94 98 Nasal Cannula 2.00 08/17/21 16:00 99 NIV Bilevel 30 08/17/21 15:00 90 23 140/82 96 Nasal Cannula 2.00 08/17/21 14:00 91 24 135/80 98 Nasal Cannula 2.00 08/17/21 13:00 87 08/17/21 13:00 98 26 129/82 98 Nasal Cannula 2.00 08/17/21 12:00 96 24 131/83 97 Nasal Cannula 2.00 08/17/21 12:00 99 NIV Bilevel 30 08/17/21 11:06 98 Nasal Cannula 3.00 08/17/21 11:00 92 20 139/85 98 Nasal Cannula 2.00 08/17/21 10:00 90 21 126/80 98 Nasal Cannula 2.00 08/17/21 09:00 98 21 132/78 97 Nasal Cannula 2.00 08/17/21 08:33 Nasal Cannula 2.00 I & O 08/18/21 07:00 Intake Total 2370 ml Output Total 3650 ml Balance -1280 ml Height & Weight Height: 5'7.00" Weight: 136lbs. 8.0oz. 61.586378un; 21.76 BMI Method: General Appearance: No Apparent Distress, Chronically ill, Thin HEENT: PERRL/EOMI, Pharynx Normal Neck: Normal Inspection, Supple Respiratory: No Respiratory Distress, Decreased Breath Sounds (left lower lung bobo) Cardiovascular: Regular Rate, Rhythm, No Murmur Capillary Refill: Less Than 3 Seconds Peripheral Pulses: 3+ Radial Pulses (R), 3+ Radial Pulses (L) Gastrointestinal: normal bowel sounds (Few), non tender, soft, guarding; No rebound; tenderness (Umbilicus) Extremity: Normal Inspection, No Pedal Edema Neurologic/Psychiatric: Alert, Oriented x3, No Motor/Sensory Deficits, Depressed Affect Skin: Normal Color, Warm/Dry Lymphatic: No Adenopathy Results Lab Laboratory Tests 08/16/21 17:40 08/16/21 20:14 08/17/21 02:30 08/18/21 05:35 Assessment/Plan Assessment/Plan ` CASSY PEMBERTON MD Aug 18, 2021 08:30
--- NOTE | 2021-08-18 08:31 | Tele-ICU Progress Note ---
Subjective Date Seen by a Provider: Aug 18, 2021 Time Seen by a Provider: 08:31 Sepsis Event Evaluation Height, Weight, BMI Height: 5'7.00" Weight: 136lbs. 8.0oz. 61.340897ct; 21.76 BMI Method: Focused Exam Lactate Level 08/16/21 22:16: Lactic Acid Level 3.31*H 08/17/21 00:20: Lactic Acid Level 3.03*H 08/17/21 02:30: Lactic Acid Level 1.95 Time of Focused Exam: 18:20 Exam Exam Patient acknowledged, consented, and participated in this virtual visit which was conducted using real time audio/video Vital Signs Date Time Temp Pulse Resp B/P (MAP) Pulse Ox O2 Delivery O2 Flow Rate FiO2 08/18/21 08:00 36.2 08/18/21 07:00 88 08/18/21 06:56 96 Nasal Cannula 1.00 08/18/21 06:30 88 21 130/69 97 Nasal Cannula 2.00 08/18/21 06:14 37.6 08/18/21 06:00 75 20 182/83 98 Nasal Cannula 2.00 08/18/21 05:44 38.1 08/18/21 05:00 88 13 133/91 98 Nasal Cannula 2.00 08/18/21 04:00 98 Nasal Cannula 2.00 08/18/21 04:00 85 20 149/98 97 Nasal Cannula 2.00 08/18/21 04:00 37.8 08/18/21 03:00 81 23 150/95 97 Nasal Cannula 2.00 08/18/21 02:40 97 Nasal Cannula 1.00 08/18/21 02:00 88 24 119/84 98 Nasal Cannula 2.00 08/18/21 01:00 97 08/18/21 01:00 97 23 139/89 97 Nasal Cannula 2.00 08/18/21 00:00 89 25 156/93 98 Nasal Cannula 2.00 08/18/21 00:00 37.2 Nasal Cannula 2.00 08/17/21 23:59 98 Nasal Cannula 2.00 08/17/21 23:00 96 20 143/82 98 Nasal Cannula 2.00 08/17/21 22:00 89 19 138/87 98 Nasal Cannula 2.00 08/17/21 21:40 98 Nasal Cannula 2.00 08/17/21 21:00 87 12 168/80 98 Nasal Cannula 2.00 08/17/21 21:00 36.8 Nasal Cannula 2.00 08/17/21 20:00 98 Nasal Cannula 2.00 08/17/21 20:00 37.7 08/17/21 20:00 87 17 159/93 98 Nasal Cannula 2.00 08/17/21 19:00 89 08/17/21 19:00 89 21 140/90 98 Nasal Cannula 2.00 08/17/21 18:52 97 Nasal Cannula 2.00 08/17/21 18:00 97 21 149/97 99 Nasal Cannula 2.00 08/17/21 17:00 93 19 125/77 98 Nasal Cannula 2.00 08/17/21 16:02 37.4 08/17/21 16:00 92 27 149/94 98 Nasal Cannula 2.00 08/17/21 16:00 99 NIV Bilevel 30 08/17/21 15:00 90 23 140/82 96 Nasal Cannula 2.00 08/17/21 14:00 91 24 135/80 98 Nasal Cannula 2.00 08/17/21 13:00 87 08/17/21 13:00 98 26 129/82 98 Nasal Cannula 2.00 08/17/21 12:00 96 24 131/83 97 Nasal Cannula 2.00 08/17/21 12:00 99 NIV Bilevel 30 08/17/21 11:06 98 Nasal Cannula 3.00 08/17/21 11:00 92 20 139/85 98 Nasal Cannula 2.00 08/17/21 10:00 90 21 126/80 98 Nasal Cannula 2.00 08/17/21 09:00 98 21 132/78 97 Nasal Cannula 2.00 08/17/21 08:33 Nasal Cannula 2.00 I & O 08/18/21 07:00 Intake Total 2370 ml Output Total 3650 ml Balance -1280 ml Height & Weight Height: 5'7.00" Weight: 136lbs. 8.0oz. 61.303178rb; 21.76 BMI Method: General Appearance: No Apparent Distress, Chronically ill, Thin HEENT: PERRL/EOMI, Pharynx Normal Neck: Normal Inspection, Supple Respiratory: No Respiratory Distress, Decreased Breath Sounds (left lower lung bobo) Cardiovascular: Regular Rate, Rhythm, No Murmur Capillary Refill: Less Than 3 Seconds Peripheral Pulses: 3+ Radial Pulses (R), 3+ Radial Pulses (L) Gastrointestinal: normal bowel sounds (Few), non tender, soft, guarding; No bharati ound; tenderness (Umbilicus) Extremity: Normal Inspection, No Pedal Edema Neurologic/Psychiatric: Alert, Oriented x3, No Motor/Sensory Deficits, Depressed Affect Skin: Normal Color, Warm/Dry Lymphatic: No Adenopathy Results Lab Laboratory Tests 08/16/21 17:40 08/16/21 20:14 08/17/21 02:30 08/18/21 05:35 CASSY PEMBERTON MD Aug 18, 2021 08:31
[2021-08-18] MEDS ORDERED: NS IV 500 ML 500 ML ONE (08:41)
--- NOTE | 2021-08-18 09:19 | Physical Therapy Daily Note ---
PT Daily Note-Current Subjective Upon arrival, pt was asleep in bed. Pt had difficulty waking up, pt would drift back to sleep, pt required VC and TC to stay wake, but as pt started to move more, pt became more awake and alert. Pain Comment: Pt reports pain, but is not rated. Mental Status Patient Orientation: Person, Time, Situation Attachments: Oxygen, Dow Catheter, IV Transfers SCALE: Activities may be completed with or without assistive devices. 5-Wcocejtoah-cnopdbw completes the activity by him/herself with no assistance from a helper. 5-Set-up or Clean-up Assistance-helper sets up or cleans up; patient completes activity. [place] assists only prior to or following the activity. 4-Supervision or Touching Assistance-helper provides verbal cues and/or touching/steadying and/or contact guard assistance as patient completes activity. Assistance may be provided throughout the activity or intermittently. 3-Partial/Moderate Assistance-helper does LESS THAN HALF the effort. [place] lifts, holds or supports trunk or limbs, but provides less than half the effort. 2-Substantial/Maximal Assistance-helper does MORE THAN HALF the effort. [place] lifts or holds trunk or limbs and provides more than half the effort. 2-Qflvbimfe-qvyxid does ALL the effort. Patient does none of the effort to complete the activity. Or, the assistance of 2 or more helpers is required for the patient to complete the activity. If activity was not attempted, code reason: 7-Patient Refused. 9-Not Applicable-not attempted and the patient did not perform the activity before the current illness, exacerbation or injury. 10-Not Attempted due to Environmental Limitations-(lack of equipment, weather restraints, etc.). 88-Not Attempted due to Medical Conditions or Safety Concerns. Sit to Lying (QC): 4 Lying to Sitting/Side of Bed(Q: 3 Sit to Stand (QC): 3 Chair/Lrn-al-Ulccn Xfer(QC): 4 Weight Bearing Right Lower Extremity: Right Weight Bearing/Tolerated Left Lower Extremity: Left Weight Bearing/Tolerated Gait Training Does the Patient Walk?: No and Walking Goal IS indicated Gait Assistive Device: FWW Pt was transferred from bed to recliner. Therapist had pt stand for a while, to get use to being upright and for safety. Pt was overall steady, once he stood up. Exercises Seated Therapy Exercises: Ankle pumps, Long arc quads, Hip flexion (5) Seated Reps: 10 Treatments Pt performed and completed all seated EXs as listed above, pt required VC and TC to perform EXs correctly, and to slow down while performing the EX. During the tx session, the pts RN arrives to check on the pt. Pts tx session is concluded at this time. Pt was seated in recliner, with tray and call light in reach. All needs were met. As PT exits pts room, RN was present. Assessment Current Status: Fair Progress Pt would greatly benefit from more PT to improve on activity tolerance, GT and strength. PT Group Home Goals Group Home Goals PT Aids Social Worker Goals Time Frame: Aug 28, 2021 Roll Left & Right (QC): 6 Sit to Lying (QC): 6 Lying-Sitting on Side/Bed(QC): 6 Sit to Stand (QC): 6 Chair/Sqk-hw-Xgzrj Xfer(QC): 6 Toilet Transfer (QC): 6 Walk 10 feet (QC): 6 Walk 50ft with 2 Turns (QC): 6 Walk 150 ft (QC): 6 PT Plan Problem List Problem List: Activity Tolerance, Functional Strength, Gait Treatment/Plan Treatment Plan: Continue Plan of Care Treatment Plan: Bed Mobility, Education, Functional Activity Cecy, Functional Strength, Gait, Safety, Therapeutic Exercise, Transfers Treatment Duration: Aug 28, 2021 Frequency: 6 times per week Estimated Hrs Per Day: .25 hour per day Safety Risks/Education Patient Education: Transfer Techniques, Correct Positioning, Safety Issues Teaching Recipient: Patient Teaching Methods: Discussion Response to Teaching: Verbalize Understanding Time/GCodes Time In: 800 Time Out: 834 Total Billed Treatment Time: 34 Total Billed Treatment 1, FA x2 (34) JOANNE NUÑEZ KISS MACHINE OPERATOR Aug 18, 2021 09:19
--- NOTE | 2021-08-18 11:30 | Occupational Ther Daily Note ---
OT Current Status-Daily Note Subjective Pt in recliner with nursing in room at beginning of tx nursing left shortly after entry of GAFFNEY. Pt eyes closed during tx and opened them twice throughout tx. Pain Numeric Pain Scale: 3 ADL-Treatment Therapy Code Descriptions/Definitions Functional [place] Measure: 0=Not Assessed/NA 4=Minimal Assistance 1=Total Assistance 5=Supervision or Setup 2=Maximal Assistance 6=Modified [place] 3=Moderate Assistance 7=Complete IndependenceSCALE: Activities may be completed with or without assistive devices. 7-Bjsbtxzavs-zieijor completes the activity by him/herself with no assistance from a helper. 5-Set-up or Clean-up Assistance-helper sets up or cleans up; patient completes activity. [place] assists only prior to or following the activity. 4-Supervision or Touching Assistance-helper provides verbal cues and/or touching/steadying and/or contact guard assistance as patient completes activity. Assistance may be provided throughout the activity or intermittently. 3-Partial/Moderate Assistance-helper does LESS THAN HALF the effort. [place] lifts, holds or supports trunk or limbs, but provides less than half the effort. 2-Substantial/Maximal Assistance-helper does MORE THAN HALF the effort. [place] lifts or holds trunk or limbs and provides more than half the effort. 2-Ikcddohmf-gttgxb does ALL the effort. Patient does none of the effort to complete the activity. Or, the assistance of 2 or more helpers is required for the patient to complete the activity. If activity was not attempted, code reason: 7-Patient Refused. 9-Not Applicable-not attempted and the patient did not perform the activity before the current illness, exacerbation or injury. 10-Not Attempted due to Environmental Limitations-(lack of equipment, weather restraints, etc.). 88-Not Attempted due to Medical Conditions or Safety Concerns. Other Treatment GAFFNEY handed pt washed cloth to wash face and pt completed. Pt declined brushing teeth at this time. Pt performed AROM shoulder flexion and elbow flexion to maintain joint integrity. Pt required rest break in between movements due to SOB. Pt very lethargic at this time. Pt in recliner at the end of tx with call light in reach and all needs met. OT Mcc Goals Concrete Mixer Operator Goals Time Frame: Aug 31, 2021 Eating (QC): 6 Oral Hygiene (QC): 5 Toileting Hygiene (QC): 4 Shower/Bathe Self (QC): 4 Upper Body Dressing (QC): 4 Lower Body Dressing (QC): 4 On/Off Footwear (QC): 4 1=Demonstrate adherence to instructed precautions during ADL tasks. 2=Patient will verbalize/demonstrate understanding of assistive devices/modifications for ADL. 3=Patient will improve strength/tolerance for activity to enable patient to perform ADL's. OT Education/Plan Problem List/Assessment Assessment: Decreased Activ Tolerance, Decreased UE Strength, Impaired Cognition, Impaired Coordination, Impaired I ADL's, Impaired Self-Care Skills Discharge Recommendations Plan/Recommendations: Continue POC Treatment Plan/Plan of Care Patient would benefit from OT for education, treatment and training to promote independence in ADL's, mobility, safety and/or upper extremity function for ADL's. Plan of Care: ADL Retraining, Cognitive Retraining, Functional Mobility, Group Exercise/Act as Ind, UE Funct Exercise/Act Treatment Duration: Aug 31, 2021 Frequency: 3 times per week (3-5x/week) Estimated Hrs Per Day: .25 hour per day Rehab Potential: Fair Time/GCodes Start Time: 11:15 Stop Time: 11:25 Total Time Billed (hr/min): 10 Billed Treatment Time 1 visit: 1, EX (10min) Kathleen Thacker Aug 18, 2021 11:30
--- NOTE | 2021-08-18 13:20 | Cardiology Progress Note ---
Subjective Date Seen by Provider: Aug 18, 2021 Time Seen by Provider: 13:18 Subjective/Events-last exam Patient was seen at bedside, sitting comfortably, sleepy. No active chest pain. Still having shortness of breath Review of Systems General: No Chills, No Night Sweats; Fatigue, Malaise; No Appetite, No Other HEENT: No Head Aches, No Visual Changes, No Eye Pain, No Ear Pain, No Dysphasia, No Sinus Congestion, No Post Nasal Drip, No Sore Throat, No Other Pulmonary: Dyspnea; No Cough, No Pleuritic Chest Pain, No Other Cardiovascular: No: Chest Pain, Palpitations, Orthopnea, Paroxysmal Noc. Dyspnea, Edema, Lt Headedness, Other Focused Exam Lactate Level 08/16/21 22:16: Lactic Acid Level 3.31*H 08/17/21 00:20: Lactic Acid Level 3.03*H 08/17/21 02:30: Lactic Acid Level 1.95 Time of Focused Exam: 18:20 Objective-Cardiology Exam Last Set of Vital Signs Vital Signs 08/17/21 08/18/21 08/18/21 08/18/21 16:00 08:00 11:00 12:00 Temp 36.2 Pulse 80 Resp 30 B/P (MAP) 127/84 Pulse Ox 97 O2 Delivery Nasal Cannula O2 Flow Rate 2.00 FiO2 30 I&O Intake and Output 08/18/21 00:00 Intake Total 1810 ml Output Total 2650 ml Balance -840 ml Intake Oral 810 ml IV Total 1000 ml Output Urine Total 2650 ml General: Alert, Cooperative, Mild Distress HEENT: Atraumatic, PERRLA Neck: Supple, No JVD Lungs: Clear to Auscultation, Normal Air Movement Heart: Regular Rate, Normal S1, Normal S2 Abdomen: Normal Bowel Sounds, Soft, No Tenderness Extremities: No Clubbing, No Cyanosis Skin: No Rashes, No Breakdown Neuro: Normal Speech Psych/Mental Status: Mood NL Results Lab Laboratory Tests 08/18/21 05:35 A/P-Cardiology Admission Diagnosis Acute respiratory failure Left lower lobe pneumonia Sepsis Methamphetamine use Assessment/Plan Acute respiratory failure, left lower lobe pneumonia, improving Titrating down to nasal cannula Patient was seen at bedside today, receiving antibiotics and feeling better. Managed by medical team. Continue to monitor Sepsis, metabolic acidosis, lactic acidosis, electrolyte imbalance, hypokalemia, monitored and corrected with medical team Epigastric and abdominal pain, currently feeling better. Continue to monitor Echocardiogram done on August 16, 2021 showing normal left ventricular size and ejection fraction 55 to 60%, normal PA pressure. No significant valvular abnormality. Overall the quality of the study was suboptimal Methamphetamine use and cannabinoids use BISHOP BYERS MD Aug 18, 2021 13:20
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
[2021-08-19] MEDS: LACTATED RINGERS 1,000 ML IV SCH ×3 (00:11→17:22)
[2021-08-19 06:57] LABS: BASOPHILS # (AUTO) 0.1 10^3/uL (0.0-0.1); BASOPHILS % (AUTO) 0 % (0-10); HEMOGLOBIN 12.2 g/dL (13.3-17.7); WHITE BLOOD COUNT 15.4 10^3/uL (4.3-11.0)
[2021-08-19 06:59] LABS: EOSINOPHILS # (AUTO) 0.1 10^3/uL (0.0-0.3); EOSINOPHILS % (AUTO) 1 % (0-10); HEMATOCRIT 34 % (40-54); LYMPHOCYTES # (AUTO) 0.7 10^3/uL (1.0-4.0); LYMPHOCYTES % (AUTO) 5 % (12-44); MEAN CORPUSCULAR HEMOGLOBIN 31 pg (25-34); MEAN CORPUSCULAR HGB CONC 36 g/dL (32-36); MEAN CORPUSCULAR VOLUME 88 fL (80-99); MEAN PLATELET VOLUME 11.4 fL (9.0-12.2); MONOCYTES # (AUTO) 1.7 10^3/uL (0.0-1.0); MONOCYTES % (AUTO) 11 % (0-12); NEUTROPHILS # (AUTO) 12.7 10^3/uL (1.8-7.8); NEUTROPHILS % (AUTO) 82 % (42-75)
[2021-08-19 07:14] LABS: POTASSIUM 3.8 MMOL/L (3.6-5.0)
[2021-08-19 07:15] LABS: CALCIUM 8.8 MG/DL (8.5-10.1)
[2021-08-19 07:20] LABS: CREATININE SERUM 0.68 MG/DL (0.60-1.30); PHOSPHORUS 1.2 MG/DL (2.3-4.7)
[2021-08-19 07:22] LABS: MAGNESIUM 1.6 MG/DL (1.6-2.4)
[2021-08-19 07:28] LABS: PLATELET COUNT 99 10^3/uL (130-400); SMEAR SCAN COMMENT YES
[2021-08-19] MEDS ORDERED: POTASSIUM PHOSPHATE INJ 30 MM in NS (IVPB) 250 ML IV ONE (07:30)
[2021-08-19] MEDS: POTASSIUM CL 10MEQ/50ML IVPB 50 ML IV SCH (07:36)
[2021-08-19] MEDS: MAGNESIUM 1 GM/100 ML IVPB 100 ML IV SCH ×3 (07:37→08:57)
[2021-08-19] MEDS: KCL 20 MEQ TAB (K-DUR) PO SCH (07:38)
[2021-08-19] MEDS: RT-ALBUTEROL/IPRATROPIUM 3 ML (DUONEB) VIAL INH SCH ×4 (07:38→19:16)
--- NOTE | 2021-08-19 07:43 | Cardiology Progress Note ---
Subjective Date Seen by Provider: Aug 19, 2021 Time Seen by Provider: 07:42 Subjective/Events-last exam Patient is laying down in bed, feeling better, still sleepy. Still having some cough Review of Systems General: No Chills, No Night Sweats; Fatigue; No Malaise, No Appetite, No Other HEENT: No Head Aches, No Visual Changes, No Eye Pain, No Ear Pain, No Dysphasia, No Sinus Congestion, No Post Nasal Drip, No Sore Throat, No Other Pulmonary: No Dyspnea; Cough; No Pleuritic Chest Pain, No Other Cardiovascular: No: Chest Pain, Palpitations, Orthopnea, Paroxysmal Noc. Dyspnea, Edema, Lt Headedness, Other Focused Exam Lactate Level 08/16/21 22:16: Lactic Acid Level 3.31*H 08/17/21 00:20: Lactic Acid Level 3.03*H 08/17/21 02:30: Lactic Acid Level 1.95 Time of Focused Exam: 18:20 Objective-Cardiology Exam Last Set of Vital Signs Vital Signs 08/17/21 08/19/21 16:00 04:00 Temp 37.0 Pulse 93 Resp 20 B/P (MAP) 145/85 Pulse Ox 94 O2 Delivery Room Air FiO2 30 I&O Intake and Output 08/19/21 00:00 Intake Total 2910 ml Output Total 3825 ml Balance -915 ml Intake Oral 1610 ml IV Total 1300 ml Output Urine Total 3825 ml # Bowel Movements 3 General: Alert, Cooperative, Mild Distress HEENT: Atraumatic, PERRLA Neck: Supple, No JVD Lungs: Clear to Auscultation, Normal Air Movement Heart: Regular Rate, Normal S1, Normal S2 Abdomen: Normal Bowel Sounds, Soft, No Tenderness Extremities: No Clubbing, No Cyanosis Skin: No Rashes, No Breakdown Neuro: Normal Speech Psych/Mental Status: Mood NL Results Lab Laboratory Tests 08/18/21 17:37 08/19/21 06:45 A/P-Cardiology Admission Diagnosis Acute respiratory failure Left lower lobe pneumonia Sepsis Methamphetamine use Assessment/Plan Status post acute respiratory failure, left lower lobe pneumonia, improving Currently off oxygen, still having some cough Sepsis, metabolic acidosis, lactic acidosis, electrolyte imbalance, hypokalemia, monitored and corrected with medical team Epigastric and abdominal pain, currently feeling better. Continue to monitor Echocardiogram done on August 16, 2021 showing normal left ventricular size and ejection fraction 55 to 60%, normal PA pressure. No significant valvular abnormality. Overall the quality of the study was suboptimal Methamphetamine use and cannabinoids use Okay for discharge by cardiology and follow-up as an outpatient BISHOP BYERS MD Aug 19, 2021 07:43
[2021-08-19] MEDS: ENOXAPARIN 40 MG/0.4 ML (LOVENOX) SYR SC SCH (08:30)
[2021-08-19] MEDS: NICOTINE PATCH REMOVAL TP SCH (08:31)
[2021-08-19] MEDS: NICOTINE 7 MG (NICODERM) PATCH TD SCH (08:31)
[2021-08-19] MEDS: SENNOSIDES 8.6 MG (SENOKOT) TAB PO SCH ×2 (08:31→19:17)
[2021-08-19] MEDS: DOCUSATE SODIUM 100 MG (COLACE) CAP PO SCH ×2 (08:31→19:16)
--- NOTE | 2021-08-19 09:00 | Physical Therapy Daily Note ---
PT Daily Note-Current Subjective Upon arrival pt was asleep in bed, pt had a difficulty waking up. Pt does wake up and consents to PT. Pain Comment: Pt reports pain in feet, but is not rated Mental Status Patient Orientation: Person, Situation Attachments: Dow Catheter, IV Transfers SCALE: Activities may be completed with or without assistive devices. 0-Fuvaekqpbx-seanbyq completes the activity by him/herself with no assistance from a helper. 5-Set-up or Clean-up Assistance-helper sets up or cleans up; patient completes activity. [place] assists only prior to or following the activity. 4-Supervision or Touching Assistance-helper provides verbal cues and/or touching/steadying and/or contact guard assistance as patient completes activity. Assistance may be provided throughout the activity or intermittently. 3-Partial/Moderate Assistance-helper does LESS THAN HALF the effort. [place] lifts, holds or supports trunk or limbs, but provides less than half the effort. 2-Substantial/Maximal Assistance-helper does MORE THAN HALF the effort. [place] lifts or holds trunk or limbs and provides more than half the effort. 8-Drbozubqv-bgxwta does ALL the effort. Patient does none of the effort to complete the activity. Or, the assistance of 2 or more helpers is required for the patient to complete the activity. If activity was not attempted, code reason: 7-Patient Refused. 9-Not Applicable-not attempted and the patient did not perform the activity before the current illness, exacerbation or injury. 10-Not Attempted due to Environmental Limitations-(lack of equipment, weather restraints, etc.). 88-Not Attempted due to Medical Conditions or Safety Concerns. Sit to Lying (QC): 3 Lying to Sitting/Side of Bed(Q: 3 Sit to Stand (QC): 3 Weight Bearing Right Lower Extremity: Right Weight Bearing/Tolerated Left Lower Extremity: Left Weight Bearing/Tolerated Gait Training Does the Patient Walk?: Yes Distance: 30 Walk 10 feet (QC): 3 Gait Persons Needed: 1 Gait Assistive Device: FWW Pt walk from bed to outside the door of pt room and back to bed. Pt had unsteady GT. PT had to hold on to pt closely, for safety. Exercises Seated Therapy Exercises: Long arc quads Seated Reps: 10 Treatments Pt ambulated from bed to outside door back to bed, pt demonstrated unsteady GT, and LOB. Pt performed LAQs 10x, pt required VC and TC on slowing down the EX. During tx session, RNs enter pt room to check on and change IV on pt and essie callidagobertonicole enters pts room gather trash bins. After ambulation, Pt returns to bed, with call light and tray in reach and all needs met. Before tx session is concluded, PT contacts RN to make sure IV pole is properly and correctly plugged in as required. Assessment Current Status: Fair Progress Pt would greatly benefit from continued PT services to work on and improve in GT, strength, and transfers. After ambulating pt returns to bed, as pt was transferring from standing to sitting, pt does not control his descend to the bed. Pt has been educated on proper descend from standing to sitting, pt will need VC on proper transfers. PT Alf Goals Alf Goals PT President & Founder Goals Time Frame: Aug 28, 2021 Roll Left & Right (QC): 6 Sit to Lying (QC): 6 Lying-Sitting on Side/Bed(QC): 6 Sit to Stand (QC): 6 Chair/Rpd-nv-Spihp Xfer(QC): 6 Toilet Transfer (QC): 6 Walk 10 feet (QC): 6 Walk 50ft with 2 Turns (QC): 6 Walk 150 ft (QC): 6 PT Plan Problem List Problem List: Activity Tolerance, Functional Strength, Balance, Gait, Transfer Treatment/Plan Treatment Plan: Continue Plan of Care Treatment Plan: Bed Mobility, Education, Functional Activity Cecy, Functional Strength, Gait, Safety, Therapeutic Exercise, Transfers Treatment Duration: Aug 28, 2021 Frequency: 6 times per week Estimated Hrs Per Day: .25 hour per day Safety Risks/Education Patient Education: Transfer Techniques, Correct Positioning, Safety Issues Teaching Recipient: Patient Teaching Methods: Discussion Response to Teaching: Verbalize Understanding Time/GCodes Time In: 750 Time Out: 820 Total Billed Treatment Time: 30 Total Billed Treatment 1, FA x2 (30) JOANNE NUÑEZ DENTAL TECHNICIAN Aug 19, 2021 09:00
[2021-08-19] MEDS: cefTRIAXone 1 GM PRE-MIX 50 ML IV SCH (10:18)
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
[2021-08-19 12:40] VITALS: BP 145/85
--- NOTE | 2021-08-19 13:56 | Occupational Ther Daily Note ---
OT Current Status-Daily Note Subjective Pt resting, laying in bed when GAFFNEY entered. Pt easily awoken at knock of the door. Pt agreed to therapy. No c/o pain reported Mental Status/Objective Patient Orientation: Person, Place, Time, Situation, [place] ADL-Treatment Therapy Code Descriptions/Definitions Functional [place] Measure: 0=Not Assessed/NA 4=Minimal Assistance 1=Total Assistance 5=Supervision or Setup 2=Maximal Assistance 6=Modified [place] 3=Moderate Assistance 7=Complete IndependenceSCALE: Activities may be completed with or without assistive devices. 3-Mrmfskyyoz-iieptqe completes the activity by him/herself with no assistance from a helper. 5-Set-up or Clean-up Assistance-helper sets up or cleans up; patient completes activity. [place] assists only prior to or following the activity. 4-Supervision or Touching Assistance-helper provides verbal cues and/or touching/steadying and/or contact guard assistance as patient completes activit y. Assistance may be provided throughout the activity or intermittently. 3-Partial/Moderate Assistance-helper does LESS THAN HALF the effort. [place] lifts, holds or supports trunk or limbs, but provides less than half the effort. 2-Substantial/Maximal Assistance-helper does MORE THAN HALF the effort. [place] lifts or holds trunk or limbs and provides more than half the effort. 5-Mocymlxsx-bhgimy does ALL the effort. Patient does none of the effort to complete the activity. Or, the assistance of 2 or more helpers is required for the patient to complete the activity. If activity was not attempted, code reason: 7-Patient Refused. 9-Not Applicable-not attempted and the patient did not perform the activity before the current illness, exacerbation or injury. 10-Not Attempted due to Environmental Limitations-(lack of equipment, weather restraints, etc.). 88-Not Attempted due to Medical Conditions or Safety Concerns. Other Treatment Skilled instruction required of BUE exercises against gravity. Pt completed x2 sets of BUE exercises against gravity of shlder flexion, elbow flexion, shlder abduction/adduction, wrist flexion, and shlder shrugs for increased BUE ROM. Pt required frequent vc to slow down for proper technique, pt stated "I have a hard time doing things slow." Pt required resting break in between set due to decreased activity tolerance. After session, pt laying in bed. Call light in reach and all needs met. Education OT Patient Education: Correct positioning, Energy conservation, Exercise program, Home exercise program Teaching Recipient: Patient Teaching Methods: Demonstration, Discussion Response to Teaching: Verbalize Understanding, Return Demonstration OT College Physics Instructor Goals [facility] Goals Time Frame: Aug 31, 2021 Eating (QC): 6 Oral Hygiene (QC): 5 Toileting Hygiene (QC): 4 Shower/Bathe Self (QC): 4 Upper Body Dressing (QC): 4 Lower Body Dressing (QC): 4 On/Off Footwear (QC): 4 1=Demonstrate adherence to instructed precautions during ADL tasks. 2=Patient will verbalize/demonstrate understanding of assistive devices/modifications for ADL. 3=Patient will improve strength/tolerance for activity to enable patient to perform ADL's. OT Education/Plan Problem List/Assessment Assessment: Decreased Activ Tolerance, Decreased UE Strength, Impaired I ADL's, Impaired Self-Care Skills Discharge Recommendations Plan/Recommendations: Continue POC Treatment Plan/Plan of Care Patient would benefit from OT for education, treatment and training to promote independence in ADL's, mobility, safety and/or upper extremity function for ADL's. Plan of Care: ADL Retraining, Cognitive Retraining, Functional Mobility, Group Exercise/Act as Ind, UE Funct Exercise/Act Treatment Duration: Aug 31, 2021 Frequency: 3 times per week (3-5x/week) Estimated Hrs Per Day: .25 hour per day Rehab Potential: Fair Time/GCodes Start Time: 13:32 Stop Time: 13:45 Total Time Billed (hr/min): 13 Billed Treatment Time 1 visit- EX 1 (13 mins) LISA LOPEZ Aug 19, 2021 13:56
[2021-08-19 16:19] VITALS: BP 154/92
[2021-08-19] MEDS: AUGMENTIN 875 MG TAB (AMOXICILLIN/CLAVULANATE) PO SCH (17:22)
[2021-08-19 19:30] VITALS: BP 123/78
[2021-08-20 00:14] VITALS: BP 123/76
[2021-08-20 04:00] VITALS: BP 125/72
[2021-08-20 05:37] LABS: BASOPHILS # (AUTO) 0.1 10^3/uL (0.0-0.1); BASOPHILS % (AUTO) 0 % (0-10); EOSINOPHILS # (AUTO) 0.1 10^3/uL (0.0-0.3); EOSINOPHILS % (AUTO) 1 % (0-10); HEMATOCRIT 36 % (40-54); HEMOGLOBIN 12.9 g/dL (13.3-17.7); LYMPHOCYTES # (AUTO) 1.2 10^3/uL (1.0-4.0); LYMPHOCYTES % (AUTO) 9 % (12-44); MEAN CORPUSCULAR HEMOGLOBIN 32 pg (25-34); MEAN CORPUSCULAR HGB CONC 36 g/dL (32-36); MEAN CORPUSCULAR VOLUME 88 fL (80-99); MEAN PLATELET VOLUME 11.6 fL (9.0-12.2); MONOCYTES % (AUTO) 14 % (0-12); NEUTROPHILS # (AUTO) 9.8 10^3/uL (1.8-7.8); NEUTROPHILS % (AUTO) 71 % (42-75); PLATELET COUNT 140 10^3/uL (130-400); WHITE BLOOD COUNT 13.8 10^3/uL (4.3-11.0)
[2021-08-20 05:46] LABS: POTASSIUM 3.9 MMOL/L (3.6-5.0)
[2021-08-20 05:47] LABS: CALCIUM 8.7 MG/DL (8.5-10.1)
[2021-08-20] MEDS: POTASSIUM CL 10MEQ/50ML IVPB 50 ML IV SCH (05:48)
[2021-08-20] MEDS: KCL 20 MEQ TAB (K-DUR) PO SCH (05:49)
[2021-08-20 05:51] LABS: PHOSPHORUS 2.3 MG/DL (2.3-4.7)
[2021-08-20 05:52] LABS: CREATININE SERUM 0.67 MG/DL (0.60-1.30)
[2021-08-20] MEDS: LACTATED RINGERS 1,000 ML IV SCH (05:52)
[2021-08-20 05:54] LABS: MAGNESIUM 1.6 MG/DL (1.6-2.4)
[2021-08-20] MEDS: MAGNESIUM 1 GM/100 ML IVPB 100 ML IV SCH ×3 (06:23→08:04)
[2021-08-20] MEDS: RT-ALBUTEROL/IPRATROPIUM 3 ML (DUONEB) VIAL INH SCH (07:13)
[2021-08-20 07:15] VITALS: BP 149/85
[2021-08-20] MEDS: AUGMENTIN 875 MG TAB (AMOXICILLIN/CLAVULANATE) PO SCH (08:04)
[2021-08-20] MEDS: ENOXAPARIN 40 MG/0.4 ML (LOVENOX) SYR SC SCH (08:05)
[2021-08-20] MEDS: NICOTINE PATCH REMOVAL TP SCH (08:05)
--- NOTE | 2021-08-20 08:08 | Occ Therapy Progress Note ---
Therapy Progress Note Pt asleep when GAFFNEY entered room. After multiple attempts to wake up pt, pt unable to respond. GAFFNEY will check on pt at a later time. LISA LOPEZ Aug 20, 2021 08:08
[2021-08-20] MEDS: SENNOSIDES 8.6 MG (SENOKOT) TAB PO SCH (09:04)
[2021-08-20] MEDS: DOCUSATE SODIUM 100 MG (COLACE) CAP PO SCH (09:05)
[2021-08-20] MEDS: NICOTINE 7 MG (NICODERM) PATCH TD SCH (09:05)
--- NOTE | 2021-08-20 09:14 | Physical Therapy Progress Note ---
Therapy Progress Note Pt refuses PT today. Pt refused to ambulate today stating that, he was going to leave and and he will get up and walk when he does. Pt refused exercises, and stated he can move, and he will move when he leaves. Pts RN has been notified, by therapist. JOANNE NUÑEZ INSIDE SOLAR SALES CONSULTANT Aug 20, 2021 09:14
--- NOTE | 2021-08-20 11:07 | Physical Therapy Daily Note ---
PT Daily Note-Current Subjective Upon arrival, RN was present with pt. Pt states he wants to walk. Mental Status Patient Orientation: Normal For Age Transfers SCALE: Activities may be completed with or without assistive devices. 3-Qwjtgwocag-gkdptpm completes the activity by him/herself with no assistance from a helper. 5-Set-up or Clean-up Assistance-helper sets up or cleans up; patient completes activity. [place] assists only prior to or following the activity. 4-Supervision or Touching Assistance-helper provides verbal cues and/or touching/steadying and/or contact guard assistance as patient completes activity. Assistance may be provided throughout the activity or intermittently. 3-Partial/Moderate Assistance-helper does LESS THAN HALF the effort. [place] lifts, holds or supports trunk or limbs, but provides less than half the effort. 2-Substantial/Maximal Assistance-helper does MORE THAN HALF the effort. [place] lifts or holds trunk or limbs and provides more than half the effort. 3-Trbhmtlhv-eydknz does ALL the effort. Patient does none of the effort to complete the activity. Or, the assistance of 2 or more helpers is required for the patient to complete the activity. If activity was not attempted, code reason: 7-Patient Refused. 9-Not Applicable-not attempted and the patient did not perform the activity before the current illness, exacerbation or injury. 10-Not Attempted due to Environmental Limitations-(lack of equipment, weather restraints, etc.). 88-Not Attempted due to Medical Conditions or Safety Concerns. Sit to Stand (QC): 6 Weight Bearing Right Lower Extremity: Right Weight Bearing/Tolerated Left Lower Extremity: Left Weight Bearing/Tolerated Gait Training Does the Patient Walk?: Yes Distance: 72' Walk 10 feet (QC): 6 Walk 50 ft with 2 Turns(QC): 6 Walk 150 ft (QC): 6 Gait Assistive Device: None Pt independently ambulated with out FWW, pt demonstrated min LOB, but was able to self correct safely. Treatments Pt independently ambulated with out FWW, pt demonstrated min LOB, but was able to self correct safely. Pt ambulated round the pierre 3x, with no difficulty. Assessment Current Status: Good Progress Nursing anticipates that pt might dc today. PT Residential Goals Processing Analyst Goals PT Processing Analyst Goals Time Frame: Aug 28, 2021 Roll Left & Right (QC): 6 Sit to Lying (QC): 6 Lying-Sitting on Side/Bed(QC): 6 Sit to Stand (QC): 6 Chair/Qev-zx-Eahzc Xfer(QC): 6 Toilet Transfer (QC): 6 Walk 10 feet (QC): 6 Walk 50ft with 2 Turns (QC): 6 Walk 150 ft (QC): 6 PT Plan Problem List Problem List: Activity Tolerance, Functional Strength, Gait Treatment/Plan Treatment Plan: Continue Plan of Care Treatment Plan: Bed Mobility, Education, Functional Activity Cecy, Functional Strength, Gait, Safety, Therapeutic Exercise, Transfers Treatment Duration: Aug 28, 2021 Frequency: 6 times per week Estimated Hrs Per Day: .25 hour per day Time/GCodes Time In: 1048 Time Out: 1054 Total Billed Treatment Time: 6 Total Billed Treatment 1, 6 min no charge JOANNE NUÑEZ PTA Aug 20, 2021 11:07
[2021-08-20] MEDS ORDERED: AMOX1TAB12 PO (11:20)
--- NOTE | 2021-08-20 19:14 | Discharge Summary ---
Discharge Summary Hospital Course Was the Problem List Reviewed?: Yes Problems/Dx: (1) Septic shock Status: Resolved (2) Lactic acidosis Status: Resolved (3) KHADIJAH (acute kidney injury) Status: Resolved (4) PNA (pneumonia) (5) Methamphetamine abuse (6) Tobacco abuse (7) UTI (urinary tract infection) Status: Acute (8) Acute respiratory failure with hypoxemia Status: Resolved Hospital Course Date of Admission: Aug 16, 2021 at 19:48 Admission Diagnosis : Septic shock due to pneumonia and UTI [facility] [place] Date of Discharge: 08/20/21 Discharge Diagnosis: Septic shock due to pneumonia and UTI Hospital Course: Travis White is a 60 year old male who was admitted with septic shock due to pneumonia and UTI. He was admitted to the ICU. He did not require pressor support. He was treated with IV fluids and antibiotics. He also had an KHADIJAH and lactic acidosis which improved with fluid resuscitation. His urine culture retu rned with E coli and he was transitioned to Augmentin to treat both his UTI and pneumonia. His course was complicated by debility. He worked with physical and occupational therapy. He refused home health and inpatient rehab. He was discharged home in fair condition. He should complete his course of antibiotics. He needs to re-establish with his primary care physician. He was previously at the [facility]. Labs and Pending Lab Test: Laboratory Tests 08/20/21 05:18: White Blood Count 13.8H, Red Blood Count 4.09L, Hemoglobin 12.9L, Hematocrit 36L , Mean Corpuscular Volume 88, Mean Corpuscular Hemoglobin 32, Mean Corpuscular Hemoglobin Concent 36, Red Cell Distribution Width 13.9, Platelet Count 140, Mean Platelet Volume 11.6, Immature Granulocyte % (Auto) 5, Neutrophils (%) ( Auto) 71, Lymphocytes (%) (Auto) 9L, Monocytes (%) (Auto) 14H, Eosinophils (%) (Auto) 1, Basophils (%) (Auto) 0, Neutrophils # (Auto) 9.8H, Lymphocytes # (Auto) 1.2, Monocytes # (Auto) 2.0H, Eosinophils # (Auto) 0.1, Basophils # (Auto) 0.1, Immature Granulocyte # (Auto) 0.7H, Sodium Level 137, Potassium Level 3.9, Chloride Level 102, Carbon Dioxide Level 21, Anion Gap 14, Blood Urea Nitrogen 12, Creatinine 0.67, Estimat Glomerular Filtration Rate 106, BUN/Creatinine Ratio 18, Glucose Level 94, Calcium Level 8.7, Phosphorus Level 2.3, Magnesium Level 1.6 Microbiology 08/16/21 MRSA Screen - Final, Complete MRSA not isolated 08/16/21 Urine Culture - Final, Complete Escherichia coli 08/16/21 Blood Culture - Preliminary, Resulted No growth Home Meds Active Amox Tr-K Clv 875-125 mg Tab (Amoxicillin/Potassium Clav) 1 Each Tablet 875 Mg PO BID WITH MEALS 5 Days Assessment/Pt Instructions See instructions Discharge Planning: >30 minutes discharge planning Discharge Instructions Discharge Diet: No Restrictions Activity as Tolerated: Yes Discharge Physical Examination Vital Signs Vital Signs Date Time Temp Pulse Resp B/P (MAP) Pulse Ox O2 Delivery O2 Flow Rate FiO2 08/20/21 08:00 Room Air 08/20/21 07:15 89 18 149/85 (106) 94 08/20/21 04:00 36.0 08/19/21 15:16 21 08/18/21 13:00 2.00 General Appearance: No Apparent Distress, Chronically ill, Thin Respiratory: Lungs Clear, No Respiratory Distress Cardiovascular: Regular Rate, Rhythm, No Murmur Gastrointestinal: Normal Bowel Sounds, Soft Extremity: Normal Inspection, No Pedal Edema Skin: Normal Color, Warm/Dry Neurologic/Psychiatric: Alert, Oriented x3, Other (irritable, agitated) Allergies: Coded Allergies: No Known Drug Allergies (Unverified , 03/17/13) Discharge Summary Date of Admission Aug 16, 2021 at 19:48 Date of Discharge Aug 20, 2021 at 11:39 Discharge Date: Aug 20, 2021 Discharge Time: 11:39 Admission Diagnosis Septic shock Discharge Diagnosis Septic shock due to pneumonia and urinary tract infection (1) Septic shock Status: Resolved (2) Lactic acidosis Status: Resolved (3) KHADIJAH (acute kidney injury) Status: Resolved (4) PNA (pneumonia) (5) Methamphetamine abuse (6) Tobacco abuse (7) UTI (urinary tract infection) Status: Acute (8) Acute respiratory failure with hypoxemia Status: Resolved RIO ARCE MD Aug 20, 2021 19:14
== END 2021-08-20 11:39 | disposition home or self-care (01) | DRG 871 ==
LOC: EDUNIT# 17:15 → ER 17:19 → ICU 19:48 → 4TH 08-18 13:34
PROVIDERS: ADMIT Internal Medicine; ATTEND Internal Medicine
PROC: 5A09357 Assistance with Respiratory Ventilation, Less than 24 Consecutive Hours, Continuous Positive Airway Pressure (ICD-10-PCS; principal; 2021-08-16)
DX: A41.9 Sepsis, unspecified organism (principal); R65.21 Severe sepsis with septic shock; J18.9 Pneumonia, unspecified organism; J96.01 Acute respiratory failure with hypoxia; E87.2 Acidosis; N17.9 Acute kidney failure, unspecified; N39.0 Urinary tract infection, site not specified; E87.1 Hypo-osmolality and hyponatremia; F15.10 Other stimulant abuse, uncomplicated; F17.210 Nicotine dependence, cigarettes, uncomplicated; R53.81 Other malaise; E87.6 Hypokalemia; E83.39 Other disorders of phosphorus metabolism; I50.9 Heart failure, unspecified; I11.0 Hypertensive heart disease with heart failure; Z20.822 Contact with and (suspected) exposure to COVID-19; R10.13 Epigastric pain
CPT/HCPCS: 36415; 51702; 70450; 71045; 71275; 72125; 74177; 80048; 80053; 80202; 80306; 80320; 81000; 82805; 82947; 83605; 83735; 83880; 84100; 84132; 84145; 84484; 85007; 85025; 85027; 85045; 85055; 85379; 85610; 85730; 86141; 87040; 87077; 87081; 87088; 87186; 87636; 93005; 93041; 93306; 94640; 94660; 94664; 94760; 99291